=== PATIENT | male | born 1985 | race Caucasian/White ===

== ENCOUNTER 2020-05-13 13:23 | Observation (INO) | payer BC, OTHER ==
--- NOTE | 2020-05-13 14:09 | RAD REPORT ---
EXAM DESCRIPTION: RAD - Chest Single View - 05/13/2020 2:03 pm CLINICAL HISTORY: CHEST PAIN Chest pain. COMPARISON: CHEST PA AND LAT 2 VIEW dated 10/28/2011; CHEST PA AND LAT 2 VIEW dated 07/26/2008 FINDINGS: Portable technique limits examination quality. The lungs are grossly clear. The heart is normal in size. No displaced fractures. IMPRESSION: No acute intrathoracic process suspected.
[2020-05-13] MEDS ORDERED: LIDOCAINE 1% 20 ML MDV ONE (14:14)
[2020-05-13] MEDS ORDERED: HEPA 1000U/500MLS 2,000 UNIT/1,000 ML BAG IV ONE (14:14)
[2020-05-13 14:51] LABS: Absolute Lymphocytes (CBC) 2.9 K/uL (0.7-4.9); Hematocrit 43.1 % (39.6-49.0); Lymphocytes % 20.7 % (15.3-44.8); RBC Red Blood Cell Count 4.63 M/uL (4.33-5.43)
[2020-05-13 14:57] LABS: Protime INR 0.94
[2020-05-13] MEDS ORDERED: ACETAMINOPHEN 500 MG TAB PO PRN (15:05)
--- NOTE | 2020-05-13 15:07 | EDPHYS ---
Physician Documentation [facility] Name: Ari Ho Age: 34 yrs Sex: Male : 1985 Arrival Date: 05/13/2020 Time: 13:25 Bed 7 Private MD: ED Physician Johnny Arreola HPI: 05/13 13:45 This 34 yrs old Male presents to ER via Wheelchair with complaints of Chest rn Pain. 13:45 The patient or guardian reports chest pain that is located primarily in the substernal rn area. The pain does not radiate. Associated signs and symptoms: Pertinent positives: abdominal pain, diaphoresis, headache, nausea, shortness of breath, Pertinent negatives: recent travel, syncope. The chest pain is described as aching, squeezing. Duration: The patient or guardian reports multiple episodes, that are intermittent. Modifying factors: The symptoms are alleviated by nothing. the symptoms are aggravated by nothing. Severity of pain: At its worst the pain was moderate in the emergency department the pain has improved. The patient has not experienced similar symptoms in the past. The patient has been recently seen by a physician:. Sent by Dr. Lomeli from clinic for chest pain/sob. Plan is to take to cath. Pt reports mother of heart attack at 29, and uncle around the same age as well. No previous cardiac eval. No fever. + cough/chest pain/sob/upper abd pain. Reports headache after nitro at clinic. Pain improved slightly with nitro. No trauma. No hx of dvt/PE. . Historical: - Allergies: 13:41 NKA; ll1 - PSHx: 13:41 Appendectomy; ll1 - Immunization history:: Flu vaccine is not up to date. - Social history:: Smoking status: Patient reports the use of cigarette tobacco products, smokes one pack cigarettes per day. - Family history:: not pertinent. - Hospitalizations: : No recent hospitalization is reported. ROS: 13:45 Constitutional: Negative for fever, chills, and weight loss, Eyes: Negative for injury, rn pain, redness, and discharge, Neck: Negative for injury, pain, and swelling, Cardiovascular: Negative for palpitations, and edema, Respiratory: Negative for wheezing, and pleuritic chest pain, Abdomen/GI: Negative for abdominal pain, nausea, vomiting, diarrhea, and constipation, Back: Negative for injury and pain, MS/Extremity: Negative for injury and deformity, Skin: Negative for injury, rash, and discoloration, Neuro: Negative for headache, weakness, numbness, tingling, and seizure. Exam: 13:45 Constitutional: This is a well developed, well nourished patient who is awake, alert, rn and in no acute distress. Head/Face: Normocephalic, atraumatic. Cardiovascular: Regular rate and rhythm. No pulse deficits. Respiratory: Speaking full sentences. No increased work of breathing, no retractions or nasal flaring. Abdomen/GI: soft, non-tender Skin: Warm, dry MS/ Extremity: Pulses equal, no cyanosis. Neurovascular intact. Full, normal range of motion. Equal circumference. Neuro: Awake and alert, GCS 15 15:27 ECG was reviewed by the Attending Physician. rn Vital Signs: 13:38 BP 155 / 84; Pulse 100; Resp 20; Temp 98.0; Pulse Ox 95% on R/A; Weight 240.86 kg; ll1 Height 6 ft. 9 in. (205.74 cm); Pain 2/10; 14:30 BP 136 / 76; Pulse 85; Resp 18; Pulse Ox 99% on R/A; vg1 14:30 BP 123 / 80; Pulse 84; Resp 19; Pulse Ox 96% ; vg1 15:02 BP 135 / 76; Pulse 86; Resp 17; Pulse Ox 100% on R/A; sv 13:38 Body Mass Index 56.90 (240.86 kg, 205.74 cm) ll1 MDM: 13:38 Patient medically screened. rn 15:04 Differential diagnosis: acute myocardial infarction, acute pericarditis, coronary rn artery disease chest wall pain, congestive heart failure costochondritis, esophagitis, gastroesophageal reflux disease (GERD), pleurisy, pneumothorax. Data reviewed: vital signs, nurses notes, lab test result(s), EKG, radiologic studies, plain films, and as a result, I will admit patient. Counseling: I had a detailed discussion with the patient and/or guardian regarding: the historical points, exam findings, and any diagnostic results supporting the discharge/admit diagnosis, lab results, radiology results, the need for further work-up and treatment in the hospital. Response to treatment: the patient's symptoms have mildly improved after treatment, and as a result, I will admit patient. Admission orders: after a detailed discussion of the patient's condition and case, the admit orders are written by me. Special discussion:. ED course: Pt without acute findings on CXR or ECG, will admit to Dr. Arevalo for cardiology eval and likely cath/ECHO.. 05/13 13:45 Order name: Basic Metabolic Panel; Complete Time: 15:25 rn 05/13 13:45 Order name: CBC with Diff; Complete Time: 15:04 rn 05/13 13:45 Order name: LFT's; Complete Time: 15:25 rn 05/13 13:45 Order name: NT PRO-BNP; Complete Time: 15:25 rn 05/13 13:45 Order name: PT-INR; Complete Time: 15:06 rn 05/13 13:45 Order name: Troponin (emerg Dept Use Only); Complete Time: 15:25 05/13 13:45 Order name: XRAY Chest (1 view); Complete Time: 14:15 05/13 15:07 Order name: COVID-19 05/13 15:24 Order name: Basic Metabolic Panel [facility] 05/13 15:24 Order name: Basic Metabolic Panel [facility] 05/13 15:24 Order name: CBC with Automated Diff [facility] 05/13 15:24 Order name: CBC with Automated Diff [facility] 05/13 15:25 Order name: Lipid Profile [facility] 05/13 15:25 Order name: Lipid Profile [facility] 05/13 13:45 Order name: EKG; Complete Time: 13:46 05/13 13:45 Order name: Cardiac monitoring; Complete Time: 14:57 05/13 13:45 Order name: EKG - Nurse/Tech; Complete Time: 14:57 rn 05/13 13:45 Order name: IV Saline Lock; Complete Time: 14:57 rn 05/13 13:45 Order name: Labs collected and sent; Complete Time: 14:57 rn 05/13 13:45 Order name: O2 Per Protocol 05/13 13:45 Order name: O2 Sat Monitoring 05/13 15:24 Order name: CONS Physician Consult [facility] 05/13 15:24 Order name: Heart Healthy [facility] 05/13 15:24 Order name: Echo with Doppler [facility] 05/13 15:24 Order name: EKG Electrocardiogram [facility] 05/13 15:24 Order name: EKG Electrocardiogram [facility] EC:27 Rate is 91 beats/min. Rhythm is regular. QRS [place] is Normal. [place] interval is normal. QRS rn interval is normal. QT interval is normal. No Q waves. T waves are Normal. No ST changes noted. Clinical impression: Normal sinus rhythm. Interpreted by me. Reviewed by me. Administered Medications: 15:12 Drug: morphine 4 mg Route: IVP; Site: right hand; hb 15:59 Follow up: Response: No adverse reaction; RASS: Alert and Calm (0) sv 15:12 Drug: Zofran (Ondansetron) 4 mg Route: IVP; Site: right hand; hb 15:59 Follow up: Response: No adverse reaction sv Disposition: 05/13/20 15:06 Hospitalization ordered by Yared Arevalo for Observation. Preliminary diagnosis are Chest pain, unspecified, Dyspnea, unspecified. - Bed requested for Telemetry/MedSurg (observation). - Status is Observation. vg1 - Condition is Stable. - Problem is new. - Symptoms have improved. Signatures: Dispatcher [employer] EDMI Savannah Hedrick RN RN dw Johnny Arreola MD MD rn Baxter, Heather, RN RN hb Garcia, Victoria, RN RN vg1 Rox Ly RN RN Batsheva Souza RN sv Corrections: (The following items were deleted from the chart) 15:46 15:06 Hospitalization Ordered by Yared Arevalo MD for Observation. Preliminary dw diagnosis is Chest pain, unspecified; Dyspnea, unspecified. Bed requested for Telemetry/MedSurg (observation). Status is Observation. Condition is Stable. Problem is new. Symptoms have improved. rn 16:23 15:46 05/13/2020 15:06 Hospitalization Ordered by Yared Arevalo MD for Observation. vg1 Preliminary diagnosis is Chest pain, unspecified; Dyspnea, unspecified. Bed requested for Telemetry/MedSurg (observation). Status is Observation. Condition is Stable. Problem is new. Symptoms have improved. dw
--- NOTE | 2020-05-13 15:07 | ER ---
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 Possible CHF, was ll1 seen at [place] last week. 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 Coronavirus screen: Client denies travel out of the [place] in the last 14 days. difficulty breathing, Client presents with at least one sign or symptom that may indicate coronavirus-19. Standard/surgical mask placed on the client. Ebola Screen: Patient denies travel to an Ebola-affected area in the 21 days before illness onset. Initial Sepsis Screen: Does the patient meet any 2 criteria? HR > 90 bpm. No. Patient's initial sepsis screen is negative. Does the patient have a suspected source of infection? Yes: Other: CP/SOB. Risk Assessment: Do you want to hurt yourself or someone else? Patient reports no desire to harm self or others. Onset of symptoms was May 08, 2020. 13:38 Method Of Arrival: Wheelchair ll1 13:38 Acuity: RUFINA 2 ll1 Historical: - Allergies: 13:41 NKA; ll1 - PSHx: 13:41 Appendectomy; ll1 - Immunization history:: Flu vaccine is not up to date. - Social history:: Smoking status: Patient reports the use of cigarette tobacco products, smokes one pack cigarettes per day. - Family history:: not pertinent. - Hospitalizations: : No recent hospitalization is reported. Screenin:30 Abuse screen: Denies threats or abuse. Denies injuries from another. Nutritional vg1 screening: No deficits noted. Tuberculosis screening: No symptoms or risk factors identified. Fall Risk None identified. Assessment: 13:45 General: Appears in no apparent distress. uncomfortable, Behavior is cooperative, vg1 anxious. Pain: Complains of pain in chest Pain does not radiate. Pain currently is 7 out of 10 on a pain scale. Neuro: Level of Consciousness is awake, alert, obeys commands, Oriented to person, place, time, situation. Cardiovascular: Capillary refill < 3 seconds Patient's skin is warm and dry. Respiratory: Respiratory effort is even, unlabored, Respiratory pattern is regular, symmetrical. GI: No signs and/or symptoms were reported involving the gastrointestinal system. : No signs and/or symptoms were reported regarding the genitourinary system. EENT: No signs and/or symptoms were reported regarding the EENT system. Derm: Skin is pink, warm \T\ dry. Musculoskeletal: No signs and/or symptoms reported regarding the musculoskeletal system. 14:45 Reassessment: Patient appears in no apparent distress at this time. Patient and/or vg1 family updated on plan of care and expected duration. Pain level reassessed. Patient is alert, oriented x 3, equal unlabored respirations, skin warm/dry/pink. 15:13 Reassessment: Pt c/o chest pain and headache 7/10. Dr. Arreola notified, morphine and hb Zofran administered as ordered. Vital Signs: 13:38 BP 155 / 84; Pulse 100; Resp 20; Temp 98.0; Pulse Ox 95% on R/A; Weight 240.86 kg; ll1 Height 6 ft. 9 in. (205.74 cm); Pain 2/10; 14:30 BP 136 / 76; Pulse 85; Resp 18; Pulse Ox 99% on R/A; vg1 14:30 BP 123 / 80; Pulse 84; Resp 19; Pulse Ox 96% ; vg1 15:02 BP 135 / 76; Pulse 86; Resp 17; Pulse Ox 100% on R/A; sv 13:38 Body Mass Index 56.90 (240.86 kg, 205.74 cm) ll1 ED Course: 13:25 Patient arrived in ED. mr 13:38 García Hernandez, LISA is PHCP. pm1 13:38 Johnny Arreola MD is Attending Physician. pm1 13:41 Triage completed. ll1 13:42 Arm band placed on Patient placed in an exam room, on a stretcher. ll1 14:02 XRAY Chest (1 view) In Process Unspecified. EDMS 14:37 Batsheva Maria, SAMPSON is Primary Nurse. sv 14:56 Basic Metabolic Panel Sent. mh5 14:57 LFT's Sent. mh5 14:57 NT PRO-BNP Sent. mh5 14:57 PT-INR Sent. 5 14:57 Troponin (emerg Dept Use Only) Sent. [facility] 14:58 Patient has correct armband on for positive identification. Placed in gown. Bed in low mh5 position. Call light in reach. Side rails up X2. Adult w/ patient. Warm blanket given. Pillow given. laboratory monitor on. Pulse ox on. NIBP on. 14:59 Initial lab(s) drawn, by me, sent to lab. EKG done, by ED staff, reviewed by Johnny Arreola MD. Inserted saline lock: 20 gauge in right hand, using aseptic technique. Blood collected. 15:05 Yared Arevalo MD is Hospitalizing Provider. rn 15:14 Primary Nurse role handed off by Batsheva Maria RN 15:14 Galina Vick RN is Primary Nurse. sv 15:59 No provider procedures requiring assistance completed. Patient admitted, IV remains in sv place. intact. Patient maintains SpO2 saturation greater than 95% on room air. Administered Medications: 15:12 Drug: morphine 4 mg Route: IVP; Site: right hand; hb 15:59 Follow up: Response: No adverse reaction; RASS: Alert and Calm (0) sv 15:12 Drug: Zofran (Ondansetron) 4 mg Route: IVP; Site: right hand; hb 15:59 Follow up: Response: No adverse reaction sv Outcome: 15:06 Decision to Hospitalize by Provider. rn 15:59 Admitted to Manager Visual accompanied by nurse, accompanied by tech, via stretcher, on sv monitor, with chart, Report called to Gloria BRADEN 15:59 Condition: stable 15:59 Instructed on the need for admit. 16:23 Patient left the ED. vg1 Signatures: Dispatcher [employer] EDMS Batsheva Maria RN RN sv Su, Jessie Maxwell, MD MD sampson Turner Patrick, HISTORICAL SITE GUIDE HISTORICAL SITE GUIDE pm1 Galina Vick, Heather Rees RN, Victoria, RN RN vg1 Rox Ly RN RN ll1
[2020-05-13] MEDS ORDERED: MORPHINE 4 MG/ML SYR ONE (15:20)
[2020-05-13 15:21] LABS: ALT/SGPT 37 U/L (12-78); AST/SGOT 15 U/L (15-37); Albumin 3.4 g/dL (3.4-5.0); Alkaline Phosphatase 119 U/L (45-117); BUN Blood Urea Nitrogen 15 mg/dL (7-18); Bicarbonate 28 mmol/L (21-32); Bilirubin Direct < 0.1 mg/dL (0-0.2); Bilirubin Total 0.4 mg/dL (0.2-1.0); Glucose Level 173 mg/dL (74-106); NT PRO-BNP 26 pg/mL (<125); Potassium 3.5 mmol/L (3.5-5.1); Protein, Total 7.4 g/dL (6.4-8.2); Sodium Level 141 mmol/L (136-145); Troponin (Emerg Dept Use Only) < 0.02 ng/mL (0.0-0.045)
[2020-05-13] MEDS ORDERED: ONDANSETRON 4 MG/2 ML VIAL ONE (15:21)
[2020-05-13] MEDS ORDERED: MORPHINE 2 MG/ML SYR IV PRN (15:38)
[2020-05-13] MEDS ORDERED: CLOPIDOGREL 75 MG TABLET PO ONE (15:45)
[2020-05-13] MEDS ORDERED: HEPARIN 5000 UNIT/ML 1 ML VIAL ONE (15:57)
[2020-05-13] MEDS ORDERED: VERAPAMIL HCL 10 MG/4 ML VIAL IV ONE (15:57)
[2020-05-13] MEDS ORDERED: MIDAZOLAM HCL 2 MG/2 ML INJ ONE (15:57)
[2020-05-13] MEDS ORDERED: FENTANYL CITR 100 MCG/2 ML ONE (15:57)
[2020-05-13] MEDS ORDERED: ATROPINE SULF 1 MG/10 ML SYR IV ONE (15:57)
--- NOTE | 2020-05-13 15:59 | P.HP ---
Certification for Inpatient Patient admitted to: Observation With expected LOS: <2 Midnights Patient will require the following post-hospital care: None Practitioner: I am a practitioner with admitting privileges, knowledge of patient current condition, hospital course, and medical plan of care. Services: Services provided to patient in accordance with Admission requirements found in Title 42 Section 412.3 of the Code of Federal Regulations Patient History Date of Service: 05/13/20 Reason for admission: Unstable angina History of Present Illness: Patient is a 34-year-old gentleman who came to the hospital with shortness of breath. Patient has some mild chest discomfort as well. Patient strong family history of Coronary artery disease. Patient has been noticing he has been retaining fluid and has gained weight as well. He is 535 lb. His BMI is greater than 50. At this time, he will be admitted to the hospital for further evaluation. Spoke with Cardiology and plan is dual heart catheterization. Unable to do a stress test to really evaluate his cardiac disease. It be more appropriate to get a cardiac evaluation. Patient will be admitted to the hospital for further treatment. Allergies acetaminophen [From Tylenol] Allergy (Verified 05/13/20 20:29) HOT FLUSHES Home Medications: NK [No Home Meds] 09/26/13 - Past Medical/Surgical History Diabetic: No -: Morbid obesity -: left sholder surgery - Family History Mother Medical History: Hypertension Father Medical History: Hypertension - Social History Smoking Status: Never smoker Alcohol use: No CD- Drugs: No Review of Systems 10-point ROS is otherwise unremarkable Physical Examination - Vital Signs Temperature: 98 F Blood Pressure: 150/80 Pulse: 89 Respirations: 24 Pulse Ox (%): 92 - Physical Exam General: Alert, In no apparent distress, Oriented x3 HEENT: Atraumatic, Normocephalic Neck: Supple, 2+ carotid pulse no bruit, JVD not distended, No Thyromegaly Respiratory: Clear to auscultation bilaterally, Normal air movement Cardiovascular: Regular rate/rhythm, Normal S1 S2, No murmurs Gastrointestinal: Normal bowel sounds, Soft and benign, Non-distended, No tenderness Musculoskeletal: No clubbing, No swelling Integumentary: No rashes Neurological: Normal gait, Normal speech, Normal strength at 5/5 x4 extr, Normal tone, Sensation intact, Cranial nerves 3-12 intact - Studies Laboratory Data (last 24 hrs) 05/13/20 14:38: PT 11.1, INR 0.94 05/13/20 14:38: WBC 13.8 H, Hgb 14.6, Hct 43.1, Plt Count 391 05/13/20 14:38: Sodium 141, Potassium 3.5, BUN 15, Creatinine 0.96, Glucose 173 H, Total Bilirubin 0.4, AST 15, ALT 37, Alkaline Phosphatase 119 H Assessment & Plan - Problems (Diagnosis) (1) Chest pain, rule out acute myocardial infarction Current Visit: Yes Status: Acute (2) Morbid obesity Current Visit: Yes Status: Acute (3) Family history of heart disease Current Visit: Yes Status: Acute (4) Shortness of breath Current Visit: Yes Status: Acute (5) Orthopnea Current Visit: Yes Status: Acute (6) Hypertension Current Visit: No Status: Acute - Plan 1. Echocardiogram; may not be able to get a great evaluation because of his size 2. We will start patient on an ROLY inhibitor or an ARB 3. We will start patient on a Beta sid 4. Cardiology consultation 5. Aggressive diuresis 6. Strict I's and O's 7. Repeat CXR 8. Daily weights 9. Unable to do a stress test because of his weight 10. Education regarding diet and treatment of congestive heart failure Discharge Plan: Home Plan to discharge in: 24 Hours - Advance Directives Does patient have a Living Will: No Does patient have a Durable POA for Healthcare: No - Code Status/Comfort Care Code Status Assessed: Yes Code Status: Full Code Critical Care: No Time Spent Managing PTS Care (In Minutes): 35
[2020-05-13] MEDS: ENOXAPARIN 40 MG/0.4 ML SQ SCH (16:00)
[2020-05-13] MEDS ORDERED: NA CHLORIDE 0.9% 1,000 ML ONE (16:14)
[2020-05-13] MEDS ORDERED: ACETAMINOPHEN 500 MG TAB ONE (17:09)
[2020-05-13] MEDS ORDERED: MEPERIDINE HCL 25 MG/ML SYR ONE (18:15)
[2020-05-13] MEDS ORDERED: TRAMADOL HCL 50 MG TAB PO ONE (19:49)
[2020-05-13 19:50] VITALS: BMI 57.3
[2020-05-13] MEDS: METOPROLOL TAR 25 MG TAB PO SCH (20:06)
[2020-05-13] MEDS ORDERED: MEPERIDINE HCL 25 MG/ML SYR IV ONE (21:03)
[2020-05-13] MEDS ORDERED: MELATONIN 5 MG TABLET PO PRN (21:04)
[2020-05-13] MEDS ORDERED: NITROGLYCERIN 0.4 MG/TAB SL PRN (22:02)
[2020-05-14] MEDS: FUROSEMIDE 40 MG/4 ML VIAL IV SCH ×2 (01:32→09:03)
--- NOTE | 2020-05-14 02:30 | CON ---
Date of Consultation: 05/13/2020 Chief Complaint: Shortness of breath. History Of Present Illness: A 34-year-old male with no known medical history except morbid obesity, comes into the office today with chest pain on and off for the past 5 days, exacerbated with exertion and gets better with sublingual nitroglycerin. He had an active chest pain in my office. EKG was n ormal. However, after 2 sublingual nitroglycerin, the patient's pain has improved significantly and he has also orthopnea, lower extremity edema, and shortness of breath with minimal exertion. Past Medical History: None. Medications: None. Allergies: NO KNOWN DRUG ALLERGIES. Social History: Does not smoke or drink. Does not use any drugs. Family History: No premature coronary artery disease or cancer. Review of Systems: All systems reviewed and they were negative except what was mentioned in the HPI. Physical Examination: Vital Signs: Temperature is 96.4, pulse is 85, breathing 18 to 22, blood pressure is 148/97, saturat ing 92% on room air. General: Pleasant, morbidly obese young male, in no distress. Head and Neck: Pupils are equal, reactive to light. Intact eye movements. No cervical lymphadenopa thy. Neck is supple. Thyroid is not enlarged. Lungs: Clear to auscultation bilaterally. No rhonchi, rales, or crackles. No accessory muscle use. Heart: Regular rate and rhythm. No extra sounds. Abdomen: Soft, nontender. Bowel sounds positive. No organomegaly. No masses or hernia. No rigidi ty or rebound. Extremities: 3+ pitting edema bilaterally. No clubbing or cyanosis. Intact pulses. Skin: No rash. Neurologic: Alert, awake, oriented x3. No acute focal deficits appreciated. Investigations: Labs were reviewed. Assessment And Plan: 1.Unstable anginal symptoms. Pain is with exertion, improves with sublingual nitroglycerin. I did an urgent coronary angiogram on him today and coronary arteries are normal, however, LVEDP is elevate d. The patient is likely with diastolic heart failure. See below. 2.Acute congestive heart failure symptoms, likely diastolic dysfunction. LVEDP is elevated. Recomm end Lasix 40 mg IV q.8 hours and reassess clinically. Obtain echocardiogram. Post discharge, the pa tient should go home on diuretics and follow up with me in the office in 1 week. 3.Morbid obesity. The patient should consider bariatric surgery for weight loss. /YESY Voice ID: [id number] Report ID: [id number]
--- NOTE | 2020-05-14 02:30 | OP ---
Date of Procedure: 05/13/2020 Surgeon: UMESH HOLLIDAY Procedures Performed: 1.Selective coronary angiogram. 2.Left heart catheterization. Indications: 1.Unstable angina. 2.Congestive heart failure. Access: Right radial artery 6-Croatian closed with TR band. Complications: None. Bleeding: Less than 5 mL. Total Sedation Time: 20 minute. Description Of Procedure: After risks, benefits, and alternatives were explained, the patient agreed to the procedure and signed informed consent. Then, we brought the patient into the cardiac cathete rization laboratory, prepped and draped in usual sterile fashion, and then we accessed right radial a rtery using pediatric micropuncture kit. We used fentanyl and Versed in incremental doses to achieve adequate moderate sedation. Then through the 6-Croatian Cordis sheath through the radial artery, we p assed a 5-Croatian [place] catheter into the aortic root and engaged left main and right coronary artery, took standard views, and then we took the wire across aortic valve into the LV, recorded LVEDP and u nadya pullback, there was no difference in pressure. Findings: 1.Left main is normal and very large. 2.LAD, large and normal. 3.Left circumflex, large and normal. 4.RCA, large, normal, and dominant. 5.LVEDP was 25 mmHg. Impression: 1.Normal coronary arteries. 2.Likely acute diastolic congestive heart failure with elevated LVEDP. Recommendation: IV diuretics and obtain echocardiogram. /YESY Voice ID: [id number] Report ID: [id number]
[2020-05-14] MEDS ORDERED: MEPERIDINE HCL 25 MG/ML SYR IV ONE (02:53)
[2020-05-14] MEDS ORDERED: HYDROCODONE/APAP 5/325 MG TAB PO ONE ×2 (05:40→11:59)
[2020-05-14 05:45] LABS: Absolute Lymphocytes (CBC) 2.6 K/uL (0.7-4.9); Basophils % 1.2 % (0-1.3); Hematocrit 42.7 % (39.6-49.0); Lymphocytes % 25.7 % (15.3-44.8); MPV 7.7 fL (7.6-11.3); RBC Red Blood Cell Count 4.58 M/uL (4.33-5.43)
[2020-05-14 05:53] LABS: BUN Blood Urea Nitrogen 14 mg/dL (7-18); Bicarbonate 30 mmol/L (21-32); Glucose Level 113 mg/dL (74-106); HDL Cholesterol 39 mg/dL (40-60); LDL Cholesterol, Calculated 128 (<130); Potassium 3.7 mmol/L (3.5-5.1); Sodium Level 142 mmol/L (136-145)
[2020-05-14 08:47] VITALS: O2SAT 98
[2020-05-14] MEDS ORDERED: CLOPIDOGREL 75 MG TABLET PO SCH (09:00)
[2020-05-14] MEDS ORDERED: ASPIRIN 325 MG TAB PO SCH (09:00)
[2020-05-14] MEDS ORDERED: ASPIRIN EC 81 MG TAB PO SCH (09:00)
[2020-05-14] MEDS: ENOXAPARIN 40 MG/0.4 ML SQ SCH (09:03)
[2020-05-14] MEDS: METOPROLOL TAR 25 MG TAB PO SCH (09:03)
--- NOTE | 2020-05-14 12:26 | PN ---
Date of Progress Note: 05/14/2020 Subjective: Mr. Vasquez had a catheterization yesterday because of chest pain, was found to have norm al heart catheterization, but elevated left ventricular end-diastolic pressure. Overnight, the nurse s reported no telemetry issues. He was in sinus rhythm. They reported no access site as far as the catheterization site is concerned. I think he has acute diastolic congestive heart failure. He need s to be on beta-blockers and Lasix. Watch salt intake, I's and O's. Consider weight loss surgery. He can go home today. Case was discussed with Dr. Arevalo. He will follow up with Dr. Lomeli in the ne xt 2 weeks. JANNA/YESY Voice ID: [id number] Report ID: [id number]
[2020-05-14 12:28] VITALS: BP 148/82; TEMP 96.8
--- NOTE | 2020-05-14 12:34 | EKG ---
Test Date: 2020-05-13 Test Time: 14:48:44 Advertising Designer: MELVA MEASUREMENT RESULTS: Intervals: Rate: 91 GA: 184 QRSD: 108 QT: 376 QTc: 462 [place]: P: 31 GA: 184 QRS: 7 T: 56 INTERPRETIVE STATEMENTS: Normal sinus rhythm Possible Left atrial enlargement Borderline ECG Compared to ECG 12/28/2016 16:40:22 Sinus tachycardia no longer present Electronically Signed On 05-14-20 12:33:09 DIRECTOR MEDICAID by Js Man
[2020-05-14] MEDS ORDERED: FUROSEMIDE 40 MG/4 ML VIAL IV SCH (18:00)
--- NOTE | 2020-05-15 07:18 | EKG ---
Test Date: 2020-05-14 Test Time: 14:27:17 Fire Extinguisher Repairer: DOMINIK MEASUREMENT RESULTS: Intervals: Rate: 69 MT: 186 QRSD: 114 QT: 408 QTc: 437 [place]: P: 34 MT: 186 QRS: 16 T: 56 INTERPRETIVE STATEMENTS: Normal sinus rhythm Normal ECG Compared to ECG 05/13/2020 14:48:44 No significant changes Electronically Signed On 05-15-20 07:17:24 EMPLOYEE COMMUNICATIONS SPECIALIST by Js Man
--- NOTE | 2020-05-15 07:20 | EKG ---
Test Date: 2020-05-13 Test Time: 19:17:02 Irrigation Engineer: DOMINIK MEASUREMENT RESULTS: Intervals: Rate: 78 AK: 180 QRSD: 118 QT: 392 QTc: 446 [place]: P: 29 AK: 180 QRS: -14 T: 53 INTERPRETIVE STATEMENTS: Normal sinus rhythm Nonspecific intraventricular conduction delay Borderline ECG Compared to ECG 05/13/2020 14:48:44 Intraventricular conduction delay now present Electronically Signed On 05-15-20 07:17:51 FLIGHT OPERATION COORDINATOR by Js Man
--- NOTE | 2020-05-15 07:26 | ECHO ---
HEIGHT: 6 ft 9 in WEIGHT: 535 lb 0 oz DATE OF STUDY: 05/14/[address]: Yared Arevalo MD 2-DIMENSIONAL: YES M.MODE: YES DOPPLER: YES COLOR FLOW: YES TDS: PORTABLE: DEFINITY: BUBBLE STUDY: DIAGNOSIS: CHEST PAIN, RULE OUT ACUTE CORNARY SYNDROME CARDIAC HISTORY: CATHERIZATION: YES SURGERY: NO PROSTHETIC VALVE: NO PACEMAKER: NO MEASUREMENTS (cm) DIASTOLIC (NORMALS) SYSTOLIC (NORMALS) IVSd 1.4 (0.6-1.2) LA Diam 4.0 (1.9-4.0) LVEF 66% LVIDd 4.8 (3.5-5.7) LVIDs 3.1 (2.0-3.5) %FS 36% LVPWd 1.4 (0.6-1.2) Ao Diam 2.9 (2.0-3.7) 2 DIMENSIONAL ASSESSMENT: RIGHT ATRIUM: NORMAL LEFT ATRIUM: NORMAL RIGHT VENTRICLE: NORMAL LEFT VENTRICLE: LEFT VENTRICULAR HYPERTROPHY TRICUSPID VALVE: NORMAL MITRAL VALVE: NORMAL PULMONIC VALVE: NORMAL AORTIC VALVE: NORMAL PERICARDIAL EFFUSION: NONE AORTIC ROOT: NORMAL LEFT VENTRICULAR WALL MOTION: NORMAL EJECTION FRACTION. DECREASED LEFT VENTRICULAR COMPLIANCE. DOPPLER/COLOR FLOW: DECREASED LEFT VENTRICULAR COMPLIANCE. COMMENTS: DIASTOLIC DYSFUNCTION. LEFT VENTRICULAR HYPERTROPHY CONCENTRIC. NORMAL EJECTION FRACTION. TECHNICALLY DIFFICULT STUDY. NO EFFUSION. TECHNOLOGIST: MITZY DALAL
== END 2020-05-14 15:15 | disposition home or self-care (01) ==
LOC: ER 13:23 → ERHOLD 15:05 → 2ND 17:39
PROVIDERS: ADMIT Hospitalist; ATTEND Hospitalist
DX: R07.9 Chest pain, unspecified (principal); I50.31 Acute diastolic (congestive) heart failure; Z20.828 Contact with and (suspected) exposure to other viral communicable diseases; E66.01 Morbid (severe) obesity due to excess calories; Z82.49 Family history of ischemic heart disease and other diseases of the circulatory system; F17.210 Nicotine dependence, cigarettes, uncomplicated; Z68.43 Body mass index [BMI] 50.0-59.9, adult
CPT/HCPCS: 93005 ×3; 93306; 85025 ×2; 80048 ×2; 36415; 85610; 80061; 80076; 84484; 83880; 71045; 93458; 96375; 96374; 99285; U0002; C1893; J1940 ×2; J1644 ×2; J1650; J2250; J3010; J2175 ×3; J7030; J2405

== ENCOUNTER 2021-04-30 19:37 | Emergency (ER) | payer BC, OTHER ==
[2021-04-30] MEDS ORDERED: MEPERIDINE HCL 50 MG/ML ONE ×2 (20:15→22:08)
[2021-04-30] MEDS ORDERED: NA CHLORIDE 0.9% 2,000 ML ONE (20:15)
[2021-04-30] MEDS ORDERED: PROMETHAZINE INJ 25 MG/ML AMP ONE (20:15)
[2021-04-30 20:40] LABS: Absolute Lymphocytes (CBC) 1.8 K/uL (0.7-4.9); Basophils % 0.3 % (0-1.3); Hematocrit 43.1 % (39.6-49.0); Lymphocytes % 20.6 % (15.3-44.8); MPV 8.9 fL (7.6-11.3); RBC Red Blood Cell Count 4.65 M/uL (4.33-5.43)
[2021-04-30 21:02] LABS: Albumin 3.5 g/dL (3.4-5.0); Bilirubin Direct 0.1 mg/dL (0-0.2); Bilirubin Total 0.6 mg/dL (0.2-1.0); Protein, Total 7.4 g/dL (6.4-8.2)
[2021-04-30 21:17] LABS: SARS-COV-2 RT PCR NEGATIVE (NEGATIVE)
--- NOTE | 2021-04-30 21:25 | RAD REPORT ---
EXAM DESCRIPTION: CT - Chest Angio - 04/30/2021 9:12 pm CLINICAL HISTORY: FEVER COMPARISON: Abdomen Pelvis W Contrast dated 04/30/2021 FINDINGS: Chest Wall: No suspicious thyroid nodules or pathologic lymphadenopathy. Lungs: No acute abnormality. Pleura: No significant effusions or pneumothorax. Mediastinum/moi: No pathologic lymphadenopathy. Pulmonary arteries/Aorta: No filling defect identified. No aortic aneurysm. Heart: No significant pericardial effusion. Normal heart size. Upper abdomen: No acute abnormality. Partial gastrectomy. Bones: No acute abnormality. All CT scans are performed using dose optimization technique as appropriate and may include automated exposure control or mA/KV adjustment according to patient size. IMPRESSION: No aortic aneurysm or aortic dissection identified. No central pulmonary embolus. The tyrone ngs are clear.
--- NOTE | 2021-04-30 21:32 | RAD REPORT ---
EXAM DESCRIPTION: CTAbdomen Pelvis W Contrast - 04/30/2021 9:12 pm CLINICAL HISTORY: S/P bariatric surgery;Abd pain COMPARISON: No comparisons TECHNIQUE: CT of the abdomen and pelvis was performed. All CT scans are performed using dose optimization technique as appropriate and may include automated exposure control or mA/KV adjustment according to patient size. FINDINGS: Lower chest: No acute abnormality. Liver: Hepatic steatosis. Biliary: No biliary ductal dilatation. Stomach: Kamryn-en-Y gastric bypass. Duodenum: No significant focal abnormality. Pancreas: No significant abnormality. Spleen: No significant abnormality. Adrenal: No suspicious lesions. Kidney/ureter: No hydronephrosis. No renal calculi. Retroperitoneum: No retroperitoneal adenopathy. Vascular: No aneurysm. Bowel: Diffuse colonic wall thickening. Appendectomy.. No bowel obstruction. Peritoneum: No ascites or free air. Small fat containing right inguinal hernia. Bladder: Grossly unremarkable. Reproductive: No adnexal masses. Bones: No acute fracture. Other: n/a IMPRESSION: Pancolitis with differential to include infectious and inflammatory etiologies primarily .
[2021-04-30] MEDS ORDERED: KCL 20 MEQ/100 mL IVPB 20 MEQ/100 ML BAG IV ONE (22:30)
[2021-04-30] MEDS ORDERED: METRONIDAZOLE 500mg IVPB 500 MG/100 ML BAG IV ONE (22:52)
[2021-04-30] MEDS ORDERED: CIPROFLOXACIN 400mg IV 400 MG/200 ML BAG IV ONE (22:52)
[2021-05-01] MEDS ORDERED: KETOROLAC 30 MG/ML INJ ONE (00:46)
[2021-05-01] MEDS ORDERED: KCL 20 MEQ/100 mL IVPB 20 MEQ/100 ML BAG IV ONE (01:03)
[2021-05-01] MEDS ORDERED: POTASSIUM 25 MEQ EFFERV TAB ONE (01:07)
[2021-05-01] MEDS ORDERED: MEPERIDINE HCL 50 MG/ML ONE (02:23)
--- NOTE | 2021-05-01 03:43 | ER ---
Nurse's Notes [facility] Name: Ari Ho Age: 35 yrs Sex: Male : 1985 Arrival Date: 04/30/2021 Time: 19:41 Bed 2 Private MD: Diagnosis: Abdominal pain. Pancolitis. Hypokalemia. S/P bariatric surgery Presentation: 04/30 19:47 Chief complaint: Patient states: pt states he had weight loss surgery last month and mr2 over the past 3 days has developed nausea epigastric pain 9/10 and low grade fever. unable to hold down food or liquid. Coronavirus screen: Vaccine status: Patient reports being unvaccinated. Ebola Screen: Patient negative for fever greater than or equal to 101.5 degrees Fahrenheit, and additional compatible Ebola Virus Disease symptoms Patient denies exposure to infectious person. Patient denies travel to an Ebola-affected area in the 21 days before illness onset. Initial Sepsis Screen: Does the patient meet any 2 criteria? HR > 90 bpm. Does the patient have a suspected source of infection? Yes: Acute abdominal pain. Risk Assessment: Do you want to hurt yourself or someone else? Patient reports no desire to harm self or others. 19:47 Method Of Arrival: Ambulatory mr2 19:47 Acuity: RUFINA 2 mr2 19:59 Onset of symptoms was April 28, 2021. mr2 Historical: - Allergies: 19:57 Morphine; mr2 - Home Meds: 20:04 lisinopril 10 mg Oral tab 1 tab once daily [Active]; metoprolol tartrate 25 mg Oral tab mr2 1 tab once daily [Active]; furosemide 20 mg Oral tab 1 tab once daily [Active]; - Immunization history:: Adult Immunizations up to date, Client reports having NOT received the Covid vaccine. Flu vaccine is not up to date. - Social history:: Smoking status: Patient denies any tobacco usage or history of. Screenin:20 Abuse screen: Denies threats or abuse. Nutritional screening: No deficits noted. lc1 Tuberculosis screening: No symptoms or risk factors identified. Fall Risk None identified. Assessment: 20:06 General: Appears distressed, uncomfortable, obese, Behavior is cooperative, anxious, lc1 restless, Reports feeling ill for 2-3 days. Pain: Complains of pain in abdomen Pain currently is 10 out of 10 on a pain scale. Quality of pain is described as sharp, Pain began 2-3 days ago. Is continuous. Neuro: No deficits noted. Cardiovascular: No deficits noted. Denies chest pain. Respiratory: Airway is patent Respiratory effort is even, unlabored, Respiratory pattern is regular. GI: Bowel sounds Abdomen is tender to palpation in epigastric area Reports nausea, vomiting, since 2 days ago had gastric bypass 1 month ago. was able to tolerate fluids, now for last 3 days has not been able to keep anything down, has been running fevers. 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 Derm: laproscopic scars noted to abdomen from gastric bypass. 21:00 Reassessment: No changes from previously documented assessment. Patient and/or family lc1 updated on plan of care and expected duration. Pain level reassessed. Patient is alert, oriented x 3, equal unlabored respirations, skin warm/dry/pink. Patient states symptoms have not improved. 22:00 Reassessment: No changes from previously documented assessment. Patient and/or family lc1 updated on plan of care and expected duration. Pain level reassessed. Patient is alert, oriented x 3, equal unlabored respirations, skin warm/dry/pink. Patient states symptoms have not improved. Dr Reynoso Notified, med ordered . 22:50 Reassessment: Patient and/or family updated on plan of care and expected duration. Pain lc1 level reassessed. PT states he had diarrhea 5x today. Last time was at lunch. Last vomiting was at breakfast. Unable to tolerated any po Fluids all day. No diarrhea or vomiting while here in ER . 23:45 Reassessment: Patient and/or family updated on plan of care and expected duration. Pain lc1 level reassessed. Patient is alert, oriented x 3, equal unlabored respirations, skin warm/dry/pink. pt sleeping, no distress noted, at bedside . 05/01 00:38 Reassessment: Patient and/or family updated on plan of care and expected duration. Pain lc1 level reassessed. Patient is alert, oriented x 3, equal unlabored respirations, skin warm/dry/pink. Patient states that his pain is increased, requesting additional pain medication, Dr Reynoso informed. 01:08 Reassessment: No changes from previously documented assessment. Patient and/or family lc1 updated on plan of care and expected duration. Pain level reassessed. Patient is alert, oriented x 3, equal unlabored respirations, skin warm/dry/pink. attempted to give klyte po, pt unable to tolerate. refused saying it will make him throw up. Attempted to give sip of water. pt able to swallow it but stated it made his stomach hurt. . 02:21 Reassessment: Patient and/or family updated on plan of care and expected duration. Pain lc1 level reassessed. pt states his abdominal pain is bad again. attempted to reposition, unable to tolerated movement, attempted to give sip of water, unable to tolerate po liquids. states he feels like he will throw up. . 03:30 Reassessment: No changes from previously documented assessment. Patient and/or family lc1 updated on plan of care and expected duration. Pain level reassessed. Patient is alert, oriented x 3, equal unlabored respirations, skin warm/dry/pink. Vital Signs: 04/30 19:47 BP 126 / 74; Pulse 100; Resp 19; Temp 100.5; Pulse Ox 98% on R/A; Weight 222.26 kg; mr2 Height 6 ft. 9 in. (205.74 cm); Pain 9/10; 20:20 BP 129 / 65; Pulse 89; Resp 20; Temp 101.4(O); Pulse Ox 97% on R/A; Weight 222.26 kg; lc1 Height 6 ft. 9 in. (205.74 cm); Pain 10/10; 21:47 BP 117 / 69; Pulse 84; Resp 18; Pulse Ox 92% on R/A; 1 22:13 Temp 99.1(O); 1 22:30 BP 122 / 53; Pulse 86; Resp 16; Pulse Ox 91% on R/A; 1 23:15 BP 112 / 60; Pulse 84; Resp 16; Pulse Ox 92% on R/A; [facility] 05/01 00:00 BP 100 / 65; Pulse 80; Resp 16; Pulse Ox 97% on R/A; [facility] 00:37 Temp 98.6(O); [facility] 01:08 BP 119 / 73; Pulse 67; Resp 16; Pulse Ox 93% on R/A; [facility] 02:00 BP 92 / 62; Pulse 64; Resp 18; Pulse Ox 96% on R/A; 1 02:45 BP 112 / 62; Pulse 65; Pulse Ox 96% on R/A; 1 03:06 Temp 97.7(O); 1 03:45 BP 117 / 61; Pulse 58; Resp 16; Pulse Ox 97% on R/A; 1 04:00 BP 111 / 64; Pulse 58; Resp 16; Pulse Ox 95% on R/A; 1 04/30 20:20 Body Mass Index 52.51 (222.26 kg, 205.74 cm) [facility] ED Course: 04/30 19:41 Patient arrived in ED. bp1 19:52 Triage completed. mr2 19:57 Shiv Reynoso MD is Attending Physician. pkl 20:00 Bridgett Varma is Primary Nurse. lc1 20:20 Patient has correct armband on for positive identification. Allergy band placed. Bed in lc1 low position. Side rails up X2. Pulse ox on. NIBP on. 20:20 No provider procedures requiring assistance completed. lc1 20:30 Inserted saline lock: 20 gauge in left hand, using aseptic technique. Blood collected. ds4 20:43 Inserted saline lock: 18 gauge in left hand, using aseptic technique. df1 20:43 Inserted saline lock: 20 gauge in left antecubital area, using aseptic technique. df1 20:44 Procalcitonin Sent. df1 20:44 Lactate Sent. df1 20:44 Blood Culture Adult (2) Sent. df1 20:44 COVID-19/FLU A+B (Document "Date of Onset" if Symptomatic) Sent. df1 20:44 Procalcitonin Sent. df1 20:44 Lactate Sent. df1 20:44 Blood Culture Sent. df1 21:12 CT Abd/Pelvis - IV Contrast Only In Process Unspecified. EDMS 21:12 CT Chest Angio In Process Unspecified. EDMS 22:30 Door closed. Noise minimized. Lights dimmed. at bedside . [facility] 05/01 00:00 Patient notified of wait time. lc1 00:43 Potassium Sent. lc1 03:07 Potassium Sent. lc1 03:45 Resting quietly. 1 04:00 IV discontinued, intact, bleeding controlled, Pressure dressing applied. [facility] Administered Medications: 04/30 20:05 CANCELLED (Inappropriate at this time): Lisinopril 10 mg PO once mr2 20:05 CANCELLED (Inappropriate at this time): Metoprolol 25 mg PO once mr2 20:05 CANCELLED (Inappropriate at this time): Furosemide 20 mg PO once mr2 20:20 Drug: NS 0.9% 1000 ml Route: IV; Rate: 1000 ml; Site: left hand; lc1 22:36 Follow up: IV Status: Completed infusion; IV Intake: 1000ml 1 20:20 Drug: Demerol (meperidine) 50 mg Route: IVP; Site: left hand; lc1 22:36 Follow up: Response: No adverse reaction 1 20:20 Drug: Phenergan (promethazine) 25 mg Route: IVP; Site: left hand; lc1 22:36 Follow up: Response: No adverse reaction 1 22:15 Drug: Demerol (meperidine) 50 mg Route: IVP; Site: left hand; lc1 22:37 Follow up: Response: Pain is decreased [facility] 05/01 00:13 Follow up: Response: No adverse reaction; Pain is decreased [facility] 04/30 22:36 Drug: Potassium Chloride 20 mEq Route: IV; Rate: calculated rate; Site: left hand; 1 22:37 Drug: NS 0.9% 1000 ml Route: IV; Rate: 125 ml/hr; Site: left hand; 1 05/01 04:20 Follow up: IV Status: Completed infusion 1 04/30 23:04 Drug: Flagyl (metroNIDAZOLE) 500 mg Volume: 100 ml; Route: IVPB; Rate: 200 ml/hr; lc1 Infused Over: 30 mins; Site: left hand; 05/01 00:13 Follow up: Response: No adverse reaction; IV Status: Completed infusion 1 00:13 Drug: Cipro (ciprofloxacin) 400 mg Volume: 200 ml; Route: IVPB; Infused Over: 60 mins; lc1 Site: left hand; 00:50 Drug: Ketorolac 30 mg Route: IVP; Site: left antecubital; lc1 01:15 Follow up: Response: No adverse reaction lc1 01:14 Drug: Potassium Chloride 20 mEq Route: IV; Rate: 1 calculated rate; Site: left hand; lc1 02:31 Follow up: Response: No adverse reaction lc1 02:40 Follow up: IV Status: Completed infusion lc1 01:14 Not Given (Patient Refused): Klor-Con (potassium) Effervescent Tablet 50 mEq PO once; lc1 dissolve in 4 ounces of water or juice 02:31 Drug: Demerol (meperidine) 50 mg {Note: Rass 1.} Route: IVP; Site: left hand; lc1 03:54 Follow up: Response: Pain is decreased lc1 Intake: 04/30 22:36 IV: 1000ml; Total: 1000ml. lc1 Outcome: 05/01 03:42 Discharge ordered by . deysi 04:00 Discharged to home ambulatory. 1 04:00 Condition: improved 04:00 Discharge instructions given to patient, significant other, Instructed on discharge instructions, follow up and referral plans. medication usage, Demonstrated understanding of instructions, follow-up care, medications, Prescriptions given X 4. 04:21 Patient left the ED. lc1 Signatures: Dispatcher [employer] EDMS Shiv Reynoso MD MD pkl Bridgett Varma lc1 Fabian Benitez ds4 Nayla Taveras Mike, RN RN mr2 Shira Hoyos df1 Corrections: (The following items were deleted from the chart) 04/30 19:58 19:57 Allergies: NKA; mr2 mr2 20:05 04/29 00:00 Lisinopril 10 mg PO mr2 mr2 04/30 20:05 04/29 00:00 Metoprolol 25 mg PO mr2 mr2 04/30 20:05 04/29 00:00 Furosemide 20 mg PO mr2 mr2 05/01 02:13 01:08 Reassessment: No changes from previously documented assessment. Patient and/or lc1 family updated on plan of care and expected duration. Pain level reassessed. Patient is alert, oriented x 3, equal unlabored respirations, skin warm/dry/pink. lc1
--- NOTE | 2021-05-01 03:43 | EDPHYS ---
Physician Documentation [facility] Name: Ari Ho Age: 35 yrs Sex: Male : 1985 Arrival Date: 04/30/2021 Time: 19:41 Bed 2 Private MD: ED Physician Shiv Reynoso HPI: 04/30 20:15 This 35 yrs old Male presents to ER via Ambulatory with complaints of pkl Abdominal Pain, Vomiting, Fever, Post Surgical Pain. 20:15 The patient presents with abdominal pain in the upper abdomen. Onset: The pkl symptoms/episode began/occurred 3 day(s) ago. The symptoms do not radiate. Associated signs and symptoms: Pertinent positives: nausea and vomiting, fever. Patient had bariatric surgery 04/01/21 in [place], [place] Historical: - Allergies: 19:57 Morphine; mr2 - Home Meds: 20:04 lisinopril 10 mg Oral tab 1 tab once daily [Active]; metoprolol tartrate 25 mg Oral tab mr2 1 tab once daily [Active]; furosemide 20 mg Oral tab 1 tab once daily [Active]; - Immunization history:: Adult Immunizations up to date, Client reports having NOT received the Covid vaccine. Flu vaccine is not up to date. - Social history:: Smoking status: Patient denies any tobacco usage or history of. ROS: 20:15 Eyes: Negative for injury, pain, redness, and discharge, ENT: Negative for injury, pkl pain, and discharge, Neck: Negative for injury, pain, and swelling, Cardiovascular: Negative for chest pain, palpitations, and edema, Respiratory: Negative for shortness of breath, cough, wheezing, and pleuritic chest pain. 20:15 Abdomen/GI: Positive for abdominal pain, nausea and vomiting, of the upper abdomen. 20:15 Back: Negative for acute changes. 20:15 : Negative for urinary symptoms. 20:15 MS/extremity: Negative for acute changes. 20:15 Skin: Negative for rash. 20:15 Neuro: Negative for altered mental status, loss of consciousness. Exam: 20:18 Head/Face: Normocephalic, atraumatic. Eyes: Pupils equal round and reactive to light, pkl extra-ocular motions intact. Lids and lashes normal. Conjunctiva and sclera are non-icteric and not injected. Cornea within normal limits. Periorbital areas with no swelling, redness, or edema. ENT: Nares patent. No nasal discharge, no septal abnormalities noted. Tympanic membranes are normal and external auditory canals are clear. Oropharynx with no redness, swelling, or masses, exudates, or evidence of obstruction, uvula midline. Mucous membranes moist. Neck: Trachea midline, no thyromegaly or masses palpated, and no cervical lymphadenopathy. Supple, full range of motion without nuchal rigidity, or vertebral point tenderness. No Meningismus. Chest/axilla: Normal chest wall appearance and motion. Nontender with no deformity. No lesions are appreciated. Cardiovascular: Regular rate and rhythm with a normal S1 and S2. No gallops, murmurs, or rubs. Normal PMI, no JVD. No pulse deficits. Respiratory: Lungs have equal breath sounds bilaterally, clear to auscultation and percussion. No rales, rhonchi or wheezes noted. No increased work of breathing, no retractions or nasal flaring. 20:18 Abdomen/GI: Inspection: obese Bowel sounds: normal, Palpation: soft, moderate abdominal tenderness, in the epigastric area, right upper quadrant and left upper quadrant. 20:18 Back: Exam negative for acute changes. 20:18 : Exam negative for acute changes. 20:18 Musculoskeletal/extremity: Exam is negative for acute changes. 20:18 Skin: Exam negative for rash. 20:18 Neuro: Orientation: is normal, Mentation: is normal, Cranial nerves: grossly normal, Motor: is normal. Vital Signs: 19:47 BP 126 / 74; Pulse 100; Resp 19; Temp 100.5; Pulse Ox 98% on R/A; Weight 222.26 kg; mr2 Height 6 ft. 9 in. (205.74 cm); Pain 9/10; 20:20 BP 129 / 65; Pulse 89; Resp 20; Temp 101.4(O); Pulse Ox 97% on R/A; Weight 222.26 kg; lc1 Height 6 ft. 9 in. (205.74 cm); Pain 10/10; 21:47 BP 117 / 69; Pulse 84; Resp 18; Pulse Ox 92% on R/A; lc1 22:13 Temp 99.1(O); lc1 22:30 BP 122 / 53; Pulse 86; Resp 16; Pulse Ox 91% on R/A; lc1 23:15 BP 112 / 60; Pulse 84; Resp 16; Pulse Ox 92% on R/A; 1 05/01 00:00 BP 100 / 65; Pulse 80; Resp 16; Pulse Ox 97% on R/A; 1 00:37 Temp 98.6(O); 1 01:08 BP 119 / 73; Pulse 67; Resp 16; Pulse Ox 93% on R/A; 1 02:00 BP 92 / 62; Pulse 64; Resp 18; Pulse Ox 96% on R/A; 1 02:45 BP 112 / 62; Pulse 65; Pulse Ox 96% on R/A; 1 03:06 Temp 97.7(O); 1 03:45 BP 117 / 61; Pulse 58; Resp 16; Pulse Ox 97% on R/A; 1 04:00 BP 111 / 64; Pulse 58; Resp 16; Pulse Ox 95% on R/A; 1 04/30 20:20 Body Mass Index 52.51 (222.26 kg, 205.74 cm) [facility] MDM: 04/30 19:57 Patient medically screened. pkl 23:13 Data reviewed: vital signs, nurses notes, lab test result(s), radiologic studies, CT pkl scan. ED course: Patient feeling better. No vomiting or diarrhea noted in ER. Discussed lab and CT Scans results with patient and . Call made to notify results to Dr. Hector Mejia ( Bariatric surgeon ) Dr. Mejia did not return call.. 05/01 03:36 ED course: Patient feeling better. Discussed lab and imaging studies with patient and pkl . Advised to follow up with Dr. Tavo Mejia ( Bariatric surgeon ) in 1 to 2 days. Patient and understood instruction. 04/30 20:06 Order name: Basic Metabolic Panel; Complete Time: 22:21 pkl 04/30 20:06 Order name: CBC with Diff; Complete Time: 22:21 pkl 04/30 20:06 Order name: Hepatic Function; Complete Time: 22:21 pkl 04/30 20:06 Order name: Lipase; Complete Time: 22:21 pkl 04/30 20:09 Order name: Blood Culture Adult (2) pkl 04/30 20:09 Order name: Lactate pkl 04/30 20:09 Order name: Procalcitonin pkl 04/30 20:10 Order name: Blood Culture EDMS 04/30 20:10 Order name: Lactate; Complete Time: 22:21 EDMS 04/30 20:10 Order name: Procalcitonin; Complete Time: 22:21 EDMS 04/30 20:11 Order name: COVID-19/FLU A+B (Document "Date of Onset" if Symptomatic); Complete Time: pkl 22:21 05/01 00:24 Order name: Potassium; Complete Time: 01:00 1 05/01 02:38 Order name: CREATININE WHOLE BLOOD; Complete Time: 02:57 EDMS 05/01 02:41 Order name: Potassium 1 04/30 20:12 Order name: CT Abd/Pelvis - IV Contrast Only; Complete Time: 22:21 pkl 04/30 20:14 Order name: CT Chest Angio; Complete Time: 22:21 pkl 05/01 02:41 Order name: Potassium; Complete Time: 03:32 EDMS 04/30 20:06 Order name: IV Saline Lock; Complete Time: 20:30 pkl 04/30 20:06 Order name: Labs collected and sent; Complete Time: 20:30 pkl Administered Medications: 04/30 20:05 CANCELLED (Inappropriate at this time): Lisinopril 10 mg PO once mr2 20:05 CANCELLED (Inappropriate at this time): Metoprolol 25 mg PO once mr2 20:05 CANCELLED (Inappropriate at this time): Furosemide 20 mg PO once mr2 20:20 Drug: NS 0.9% 1000 ml Route: IV; Rate: 1000 ml; Site: left hand; 1 22:36 Follow up: IV Status: Completed infusion; IV Intake: 1000ml 1 20:20 Drug: Demerol (meperidine) 50 mg Route: IVP; Site: left hand; 1 22:36 Follow up: Response: No adverse reaction [facility] 20:20 Drug: Phenergan (promethazine) 25 mg Route: IVP; Site: left hand; [facility] 22:36 Follow up: Response: No adverse reaction [facility] 22:15 Drug: Demerol (meperidine) 50 mg Route: IVP; Site: left hand; [facility] 22:37 Follow up: Response: Pain is decreased [facility] 05/01 00:13 Follow up: Response: No adverse reaction; Pain is decreased 1 04/30 22:36 Drug: Potassium Chloride 20 mEq Route: IV; Rate: calculated rate; Site: left hand; 1 22:37 Drug: NS 0.9% 1000 ml Route: IV; Rate: 125 ml/hr; Site: left hand; lc1 05/01 04:20 Follow up: IV Status: Completed infusion lc1 04/30 23:04 Drug: Flagyl (metroNIDAZOLE) 500 mg Volume: 100 ml; Route: IVPB; Rate: 200 ml/hr; lc1 Infused Over: 30 mins; Site: left hand; 05/01 00:13 Follow up: Response: No adverse reaction; IV Status: Completed infusion 1 00:13 Drug: Cipro (ciprofloxacin) 400 mg Volume: 200 ml; Route: IVPB; Infused Over: 60 mins; lc1 Site: left hand; 00:50 Drug: Ketorolac 30 mg Route: IVP; Site: left antecubital; 1 01:15 Follow up: Response: No adverse reaction 1 01:14 Drug: Potassium Chloride 20 mEq Route: IV; Rate: 1 calculated rate; Site: left hand; lc1 02:31 Follow up: Response: No adverse reaction lc1 02:40 Follow up: IV Status: Completed infusion lc1 01:14 Not Given (Patient Refused): Klor-Con (potassium) Effervescent Tablet 50 mEq PO once; lc1 dissolve in 4 ounces of water or juice 02:31 Drug: Demerol (meperidine) 50 mg {Note: Rass 1.} Route: IVP; Site: left hand; 1 03:54 Follow up: Response: Pain is decreased 1 Disposition Summary: 05/01/21 03:42 Discharge Ordered Location: Home pkl Problem: new pkl Symptoms: have improved pkl Condition: Stable pkl Diagnosis - Abdominal pain. Pancolitis. Hypokalemia. S/P bariatric surgery pkl Followup: pkl - With: Private Physician - When: 1 - 2 days - Reason: Re-evaluation by your physician Discharge Instructions: - Discharge Summary Sheet pkl Forms: - Medication Reconciliation Form pkl - Thank You Letter pkl - Antibiotic Education pkl - Prescription Opioid Use pkl - Work release form ds4 Prescriptions: - Flagyl 500 mg Oral Tablet - take 1 tablet by ORAL route every 6 hours for 7 days; 28 tablet; Refills: 0, pkl Product Selection Permitted - Ultram 50 mg Oral Tablet - take 1 tablet by ORAL route every 6 hours As needed; 15 tablet; Refills: 0, pkl Product Selection Permitted - Zofran 4 mg Oral Tablet - take 1 tablet by ORAL route every 12 hours As needed; 15 tablet; Refills: 0, pkl Product Selection Permitted - Cipro 500 mg Oral Tablet - take 1 tablet by ORAL route every 12 hours for 7 days; 14 tablet; Refills: 0, pkl Product Selection Permitted Signatures: Dispatcher [employer] EDMS hSiv Reynoso MD MD pkl Bridgett Varma lc1 Néstor Lemon RN RN mr2 Corrections: (The following items were deleted from the chart) 04/30 19:58 19:57 Allergies: NKA; mr2 mr2 20:05 20:00 Lisinopril 10 mg PO once given. mr2 mr2 20:05 20:00 Metoprolol 25 mg PO once given. mr2 mr2 20:05 20:01 Furosemide 20 mg PO once given. mr2 mr2 20:05 20:05 Lisinopril 10 mg PO once ordered. mr2 mr2 20:05 20:05 Metoprolol 25 mg PO once ordered. mr2 mr2 20:05 20:05 Furosemide 20 mg PO once ordered. mr2 mr2
[2021-05-01 04:39] VITALS: TEMP 97.7
[2021-05-01 04:42] VITALS: BP 111/64; O2SAT 95
== END 2021-05-01 04:21 | disposition home or self-care (01) ==
LOC: ER 19:37
DX: K51.00 Ulcerative (chronic) pancolitis without complications (principal); E87.6 Hypokalemia; Z98.84 Bariatric surgery status; Z88.5 Allergy status to narcotic agent; Z20.822 Contact with and (suspected) exposure to COVID-19
CPT/HCPCS: 87040 ×2; 85025; 80048; 36415; 84132 ×2; 82565; 80076; 83605; 83690; 84145; 0240U; 71275; 74177; 99284; Q9967; J2550; J3480 ×2; J2175 ×3; J7030; J0744

== ENCOUNTER 2021-05-29 14:05 | Emergency (ER) | payer OTHER ==
[2021-05-29 15:58] LABS: Urine Blood 3+ (Negative); Urine Glucose Negative (Negative); Urine Protein Negative (Negative)
[2021-05-29] MEDS ORDERED: Ringers Lactate 1,000 ML IV ONE (16:08)
[2021-05-29 16:25] LABS: Absolute Lymphocytes (CBC) 2.4 K/uL (0.7-4.9); Basophils % 0.5 % (0-1.3); Hematocrit 44.2 % (39.6-49.0); Lymphocytes % 21.3 % (15.3-44.8); MPV 8.8 fL (7.6-11.3); RBC Red Blood Cell Count 4.71 M/uL (4.33-5.43)
[2021-05-29 16:39] LABS: BUN Blood Urea Nitrogen 8 mg/dL (7-18); Bicarbonate 24 mmol/L (21-32); Glucose Level 93 mg/dL (74-106); Potassium 3.1 mmol/L (3.5-5.1); Sodium Level 139 mmol/L (136-145)
[2021-05-29 16:40] LABS: Creatine Phosphokinase 99 U/L (39-308)
[2021-05-29] MEDS ORDERED: FOLIC ACID 1 MG, MULTIVITAMINS INJ 10 ML, THIAMINE HCL 100 MG in NA CHLORIDE 0.9% 1,000 ML IV ONE (17:00)
--- NOTE | 2021-05-29 18:26 | EDPHYS ---
Physician Documentation [facility] Name: Ari Ho Age: 35 yrs Sex: Male : 1985 Arrival Date: 05/29/2021 Time: 14:10 Bed Treatment Private MD: ED Physician Cy Gutierrez HPI: 05/29 17:16 This 35 yrs old Male presents to ER via Ambulatory with complaints of Urinary Problem, jr8 Flank Pain. 17:16 Is a 35-year-old male patient with a history of recent ISAURA-S gastric surgery for jr8 weight loss secondary to concerns for cardiac compromise. Patient stated that surgery went well and has been losing weight since the procedure. Recently had decreased urination and has felt dehydrated. Had talked to his primary care who referred him to the emergency room for hydration. Patient noted that he had some mild clotting in his urine as well and had recently started to have left flank pain denies fevers.. Historical: - Allergies: 15:35 Morphine; jl7 - Home Meds: 15:35 furosemide 20 mg Oral tab 1 tab once daily [Active]; jl7 - PMHx: 15:35 Hypertensive disorder; Congestive heart failure; jl7 - PSHx: 15:35 ISAURA-S; shoulder; jl7 - Immunization history:: Adult Immunizations not up to date, Client reports having NOT received the Covid vaccine. - Social history:: Smoking status: Patient reports the use of cigarette tobacco products, smokes one pack cigarettes per day. ROS: 17:16 Eyes: Negative for injury, pain, redness, and discharge, ENT: Negative for injury, jr8 pain, and discharge, Neck: Negative for injury, pain, and swelling, Cardiovascular: Negative for chest pain, palpitations, and edema, Respiratory: Negative for shortness of breath, cough, wheezing, and pleuritic chest pain, Abdomen/GI: Negative for abdominal pain, nausea, vomiting, diarrhea, and constipation, MS/Extremity: Negative for injury and deformity, Skin: Negative for injury, rash, and discoloration, Neuro: Negative for headache, weakness, numbness, tingling, and seizure. 17:16 Back: Positive for flank pain, on the left. 17:16 : Positive for Decreased urination. Exam: 17:16 Constitutional: This is a well developed, well nourished patient who is awake, alert, jr8 and in no acute distress. Cardiovascular: Regular rate and rhythm with a normal S1 and S2. No gallops, murmurs, or rubs. Normal PMI, no JVD. No pulse deficits. Respiratory: Lungs have equal breath sounds bilaterally, clear to auscultation and percussion. No rales, rhonchi or wheezes noted. No increased work of breathing, no retractions or nasal flaring. Abdomen/GI: Soft, non-tender, with normal bowel sounds. No distension or tympany. No guarding or rebound. No evidence of tenderness throughout. Back: No spinal tenderness. Mild left costovertebral tenderness noted. Full range of motion. Skin: Warm, dry with normal turgor. Normal color with no rashes, no lesions, and no evidence of cellulitis. MS/ Extremity: Pulses equal, no cyanosis. Neurovascular intact. Full, normal range of motion. Neuro: Awake and alert, GCS 15, oriented to person, place, time, and situation. Cranial nerves II-XII grossly intact. Motor strength 5/5 in all extremities. Sensory grossly intact. Cerebellar exam normal. Normal gait. Vital Signs: 15:32 BP 128 / 86; Pulse 75; Resp 17; Temp 97.2; Pulse Ox 98% ; Weight 206.38 kg; Height 6 jl7 ft. 9 in. (205.74 cm); Pain 9/10; 15:32 Body Mass Index 48.76 (206.38 kg, 205.74 cm) jl7 MDM: 15:57 Patient medically screened. jr8 17:16 ED course: Patient post fluids feels markedly better. Able to urinate fine and has no jr8 pain at this time. Discussed with patient that his blood work other than his potassium being slightly low was unremarkable. His urine did show 3+ blood which is concerning that in the context of having left flank pain that there may be a stone which patient has a history of. Patient stated that he feels so much better that he wants to wait before having to have a CT scan. Stated that if he were to worsen that he would come back and let us further evaluate this but for the time being feels well enough that he wants to just complete his fluids and go home at this time. Patient has remained hemodynamically stable and afebrile. Reexamination does not reveal any pain at this time. I feel like this is prudent enough at this time and that he is knowledgeable enough to come back for further evaluation if he were to worsen.. 18:25 Data reviewed: vital signs, nurses notes, and as a result, I will discharge patient. jr8 Data interpreted: Pulse oximetry: on room air is 98 %. Interpretation: normal. Counseling: I had a detailed discussion with the patient and/or guardian regarding: the historical points, exam findings, and any diagnostic results supporting the discharge/admit diagnosis, lab results, the need for outpatient follow up, a family practitioner, to return to the emergency department if symptoms worsen or persist or if there are any questions or concerns that arise at home. Response to treatment: the patient's symptoms have resolved after treatment. 05/29 15:57 Order name: Urine Dipstick-Ancillary; Complete Time: 16:04 EDMS 05/29 16:04 Order name: CBC with Diff; Complete Time: 17:09 jr8 05/29 16:04 Order name: Basic Metabolic Panel; Complete Time: 17:09 jr8 05/29 16:04 Order name: CK; Complete Time: 17:09 jr8 05/29 16:04 Order name: IV; Complete Time: 16:37 jr8 Administered Medications: 16:37 Drug: Ringers - Lactated Ringers Solution 1000 ml Route: IV; Rate: bolus; Site: left iw hand; 17:30 Follow up: IV Status: Completed infusion iw 16:37 Drug: Banana Bag - (NS 0.9% 1000 ml, foLIC Acid 1 mg, Thiamine 100 mg, Multivitamin 1 iw amp) Route: IV; Rate: 500 ml/hr; Site: left hand; 17:30 Follow up: IV Status: Completed infusion iw Disposition: 20:09 Co-signature as Attending Physician, Cy Gutierrez MD I agree with the assessment and kdr plan of care. Disposition Summary: 05/29/21 18:26 Discharge Ordered Location: Home jr8 Problem: new jr8 Symptoms: have improved jr8 Condition: Stable jr8 Diagnosis - Dehydration jr8 Followup: jr8 - With: Private Physician - When: 2 - 3 days - Reason: Recheck today's complaints, Continuance of care, Re-evaluation by your physician Discharge Instructions: - Discharge Summary Sheet jr8 - Dehydration, Adult jr8 Forms: - Medication Reconciliation Form jr8 - Thank You Letter jr8 - Antibiotic Education jr8 - Prescription Opioid Use jr8 Signatures: Dispatcher [employer] Cy Pizarro MD MD kdr Williams, Irene, RN RN iw Roszak, Josh, PA PA jr8 Viet Diez RN RN jl7 Corrections: (The following items were deleted from the chart) 15:37 15:35 PMHx: Chronic obstructive lung disease; catrachito jl7
--- NOTE | 2021-05-29 18:26 | ER ---
Nurse's Notes [facility] Name: Ari Ho Age: 35 yrs Sex: Male : 1985 Arrival Date: 05/29/2021 Time: 14:10 Bed Treatment Private MD: Diagnosis: Dehydration Presentation: 05/29 15:32 Chief complaint: Patient states: Had weight loss surgery April 01 in [place], unable jl7 to retain water, Left flank with blood in urine started last night, left CP with left fingers tingling started this morning. Coronavirus screen: At this time, the client does not indicate any symptoms associated with coronavirus-19. Ebola Screen: No symptoms or risks identified at this time. Initial Sepsis Screen: Does the patient meet any 2 criteria? No. Patient's initial sepsis screen is negative. Does the patient have a suspected source of infection? No. Patient's initial sepsis screen is negative. Risk Assessment: Do you want to hurt yourself or someone else? Patient reports no desire to harm self or others. Onset of symptoms was May 28, 2021. Care prior to arrival: None. 15:32 Method Of Arrival: Ambulatory [facility] 15:32 Acuity: RUFINA 2 jl7 Triage Assessment: 15:35 General: Appears in no apparent distress. uncomfortable, Behavior is calm, cooperative, jl7 appropriate for age. Pain: Complains of pain in left flank Pain currently is 9 out of 10 on a pain scale. Historical: - Allergies: 15:35 Morphine; jl7 - Home Meds: 15:35 furosemide 20 mg Oral tab 1 tab once daily [Active]; jl7 - PMHx: 15:35 Hypertensive disorder; Congestive heart failure; jl7 - PSHx: 15:35 ISAURA-S; shoulder; jl7 - Immunization history:: Adult Immunizations not up to date, Client reports having NOT received the Covid vaccine. - Social history:: Smoking status: Patient reports the use of cigarette tobacco products, smokes one pack cigarettes per day. Screenin:14 Abuse screen: Denies threats or abuse. Denies injuries from another. Nutritional iw screening: No deficits noted. Tuberculosis screening: No symptoms or risk factors identified. Fall Risk None identified. Assessment: 16:13 General: Appears in no apparent distress. Behavior is calm, cooperative. Pain: iw Complains of pain in back and left flank. Neuro: Level of Consciousness is awake, alert, obeys commands, Oriented to person, place, time, situation. Cardiovascular: Patient's skin is warm and dry. Respiratory: Respiratory effort is even, unlabored. GI: Abdomen is obese, Reports. Derm: Skin is intact, is healthy with good turgor. Musculoskeletal: Range of motion: intact in all extremities. 16:47 Reassessment: Patient appears in no apparent distress at this time. Patient and/or iw family updated on plan of care and expected duration. Pain level reassessed. Patient is alert, oriented x 3, equal unlabored respirations, skin warm/dry/pink. Vital Signs: 15:32 BP 128 / 86; Pulse 75; Resp 17; Temp 97.2; Pulse Ox 98% ; Weight 206.38 kg; Height 6 jl7 ft. 9 in. (205.74 cm); Pain 9/10; 15:32 Body Mass Index 48.76 (206.38 kg, 205.74 cm) jl7 ED Course: 14:10 Patient arrived in ED. as 15:35 Triage completed. jl7 15:35 Arm band placed on right wrist. Patient placed in waiting room, Patient notified of jl7 wait time. 15:45 Martita Ortega, SAMPSON is Primary Nurse. iw 15:57 Jese Mckoen PA is PHCP. jr8 15:57 Cy Gutierrez MD is Attending Physician. jr8 15:59 Urine collected: clean catch specimen, candelario colored, EKG done, reviewed by Jese Mckeon csKavin CALVILLO. 16:15 Patient has correct armband on for positive identification. iw 16:18 Inserted saline lock: 20 gauge in left hand, using aseptic technique. gd 18:39 No provider procedures requiring assistance completed. IV discontinued, intact, iw bleeding controlled, No redness/swelling at site. Pressure dressing applied. Administered Medications: 16:37 Drug: Ringers - Lactated Ringers Solution 1000 ml Route: IV; Rate: bolus; Site: left iw hand; 17:30 Follow up: IV Status: Completed infusion iw 16:37 Drug: Banana Bag - (NS 0.9% 1000 ml, foLIC Acid 1 mg, Thiamine 100 mg, Multivitamin 1 iw amp) Route: IV; Rate: 500 ml/hr; Site: left hand; 17:30 Follow up: IV Status: Completed infusion iw Outcome: 18:26 Discharge ordered by MD. burrell 18:39 Discharged to home ambulatory. iw 18:39 Condition: good 18:39 Discharge instructions given to patient, Instructed on discharge instructions, follow up and referral plans. Demonstrated understanding of instructions, follow-up care. 18:40 Patient left the ED. iw Signatures: Arleen Eckert Irene RN RN Jese Mckeon PA PA jr8 Leal, Jahala, RN RN david7 Apolonia iPllai Glynn gd Corrections: (The following items were deleted from the chart) 15:37 15:35 PMHx: Chronic obstructive lung disease; catrachito jl7 15:42 15:32 Acuity: RUFINA 3 david7 jl7
[2021-05-29 18:52] VITALS: BP 128/86; TEMP 97.2; O2SAT 98
--- NOTE | 2021-05-31 12:40 | EKG ---
Test Date: 2021-05-29 Test Time: 15:48:19 Assembler Convertible Top: RONDA MEASUREMENT RESULTS: Intervals: Rate: 71 AL: 184 QRSD: 114 QT: 410 QTc: 445 [place]: P: 38 AL: 184 QRS: -8 T: 66 INTERPRETIVE STATEMENTS: Normal sinus rhythm Normal ECG Compared to ECG 05/14/2020 14:27:17 No significant changes Electronically Signed On 05-31-21 12:35:55 MANAGER OF PATIENT by Js Man
== END 2021-05-29 18:40 | disposition home or self-care (01) ==
LOC: ER 14:05
DX: E86.0 Dehydration (principal); I10 Essential (primary) hypertension; I50.9 Heart failure, unspecified; F17.210 Nicotine dependence, cigarettes, uncomplicated; Z88.5 Allergy status to narcotic agent
CPT/HCPCS: 96365; 96368; 93005; 85025; 80048; 36415; 82550; 81003; 99284; J3411; J7120; J7030

== ENCOUNTER 2022-05-05 17:44 | Emergency (ER) | payer BC, OTHER ==
--- NOTE | 2022-05-05 18:26 | RAD REPORT ---
EXAM DESCRIPTION: CT - CTHCSPWOC - 05/05/2022 6:16 pm CLINICAL HISTORY: Trauma, head and neck injury. syncope COMPARISON: No comparisons TECHNIQUE: Axial 5 mm thick images of the head were obtained. Axial 2 mm thick images of the cervical spine were obtained with sagittal and coronal reconstruction images generated and reviewed. All CT scans are performed using dose optimization technique as appropriate and may include automated exposure control or mA/KV adjustment according to patient size. FINDINGS: CT HEAD WITHOUT CONTRAST: No acute hemorrhage, hydrocephalus or extra-axial collection is identified.No areas of brain edema or midline shift. The paranasal sinuses and mastoids are clear.The calvarium is intact. CT CERVICAL SPINE WITHOUT CONTRAST: No fracture or subluxation.No prevertebral soft tissues swelling is identified. IMPRESSION: No acute intracranial or cervical spine findings.
[2022-05-05] MEDS ORDERED: FENTANYL CITR 100 MCG/2 ML ONE (18:34)
[2022-05-05] MEDS ORDERED: TENECTEPLASE 50 MG/10 ML VIAL IV ONE (18:34)
--- NOTE | 2022-05-05 18:34 | RAD REPORT ---
EXAM DESCRIPTION: CT - Angio Aorta For Dissection - 05/05/2022 6:19 pm CLINICAL HISTORY: Chest pain radiating to the back. syncope COMPARISON: Head C Spine Mpr Wo Con dated 05/05/2022 TECHNIQUE: CT angiography of the aorta was performed with MIPs. All CT scans are performed using dose optimization technique as appropriate and may include automated exposure control or mA/KV adjustment according to patient size. FINDINGS: A left aortic arch is present with normal branching pattern of the great vessels.No acute aortic finding is seen such as aneurysm, penetrating ulcer or dissection. The celiac axis, SMA, MINA and renal arteries are patent. Pulmonary embolism assessment is limited by bolus timing. No large proximal pulmonary embolism seen. The lungs are clear. Postsurgical changes about the stomach. The liver demonstrates no focal mass or biliary dilatation.The spleen, pancreas, adrenal glands and k idneys are within normal limits for arterial phase imaging. No bowel obstruction, free fluid or abscess.No pathologic enlarged lymphadenopathy identified. No fracture or worrisome bone lesion seen. IMPRESSION: No acute aortic finding is demonstrated.
[2022-05-05 18:43] LABS: Absolute Lymphocytes (CBC) 2.6 K/uL (0.7-4.9); Hematocrit 50.1 % (39.6-49.0); Lymphocytes % 26.8 % (15.3-44.8); MCV 97.8 fL (80-100); MPV 9.1 fL (7.6-11.3); RBC Red Blood Cell Count 5.13 M/uL (4.33-5.43)
[2022-05-05 18:45] LABS: Blood Morphology Comment NOT SEEN (NOT SEEN); Platelet Estimate ADEQ; White Blood Cell Scan OK (OK)
[2022-05-05 18:46] LABS: Protime INR 1.15
[2022-05-05 19:04] LABS: Albumin 3.5 g/dL (3.4-5.0); Bilirubin Direct 0.2 mg/dL (0-0.2); Bilirubin Total 0.6 mg/dL (0.2-1.0); Magnesium 2.7 mg/dL (1.8-2.4); Potassium 3.6 mmol/L (3.5-5.1); Protein, Total 7.3 g/dL (6.4-8.2); Troponin High Sensitivity 6.2 pg/mL (<58.9)
--- NOTE | 2022-05-05 19:12 | RAD REPORT ---
EXAM DESCRIPTION: RAD - Chest Single View - 05/05/2022 7:00 pm CLINICAL HISTORY: syncope Chest pain. COMPARISON: Chest Single View dated 05/13/2020; CHEST PA AND LAT 2 VIEW dated 10/28/2011; CHEST PA AND LAT 2 VIEW dated 07/26/2008; Angio Aorta For Dissection dated 05/05/2022 FINDINGS: Portable technique limits examination quality. The lungs are grossly clear. The heart is normal in size. Mild tortuosity of the thoracic aorta.
[2022-05-05] MEDS ORDERED: HYDROMORPHONE HCL 1 MG/ML INJ ONE ×2 (19:18→20:44)
--- NOTE | 2022-05-05 19:21 | EDPHYS ---
Physician Documentation [facility] Name: Ari Ho Age: 36 yrs Sex: Male : 1985 Arrival Date: 05/05/2022 Time: 17:46 Bed 2 Private MD: ED Physician Johnny Arreola HPI: 05/05 18:10 This 36 yrs old Male presents to ER via Unassigned with complaints of Passed Out Prior cp To Arrival, Chest Pain. 18:10 The patient has experienced syncope, collapsed, lost consciousness. Onset: The cp symptoms/episode began/occurred about 1630. Context: the episode(s) was witnessed, by no one, the downtime is unknown, occurred outdoors, occurred while the patient was walking, talking to on phone. Just prior to the episode the patient experienced chest pain. Associated injury: Neck: pain, Back: pain. Associated signs and symptoms: Pertinent positives: chest pain, confusion. Current symptoms: confusion, neck pain, back pain. Historical: - Allergies: 18:04 Morphine; aa5 - PMHx: 18:04 Congestive heart failure; Hypertensive disorder; aa5 - PSHx: 18:04 ISAURA-S; Shoulder; Sleeve gastrectomy; aa5 - Immunization history:: Adult Immunizations unknown. - Social history:: Smoking status: Patient reports the use of cigarette tobacco products. ROS: 18:15 Constitutional: Negative for fever. cp 18:15 Neck: Positive for pain with movement, pain at rest. 18:15 Cardiovascular: Positive for chest pain. 18:15 Respiratory: Negative for cough, shortness of breath, wheezing. 18:15 Abdomen/GI: Negative for abdominal pain. 18:15 Back: Positive for pain at rest, pain with movement. 18:15 Neuro: Positive for altered mental status, syncope, weakness. Exam: 18:51 Constitutional: This is a well developed, well nourished patient who is awake, alert, rn tearful Head/Face: Normocephalic, atraumatic. Eyes: Periorbital areas with no swelling, redness, or edema. Cardiovascular: Regular rate and rhythm. No pulse deficits. Respiratory: No increased work of breathing, no retractions or nasal flaring. Abdomen/GI: Soft, non-tender Skin: Warm, dry MS/ Extremity: Pulses equal, no cyanosis. Neuro: Awake and alert, GCS 15, oriented to person, place, time, and situation. + left sided weakness and numbness, + right facial numbness. Vital Signs: 18:22 BP 168 / 96; Pulse 81; Resp 14; Temp 99.7(TE); Pulse Ox 97% on R/A; Weight 139.25 kg aa5 (M); Height 6 ft. 9 in. (205.74 cm); 18:37 BP 147 / 103; Pulse 76; Resp 20 S; Pulse Ox 97% on R/A; aa5 18:50 BP 134 / 99; Pulse 68; Resp 18 S; Pulse Ox 96% on R/A; aa5 19:00 vc1 18:22 Body Mass Index 32.90 (139.25 kg, 205.74 cm) aa5 19:00 See NIHSS sheet for Vitals vc1 NIH Stroke Scale Scores: 18:22 NIHSS Score: 4 aa5 18:31 NIHSS Score: 4 rn 18:50 NIHSS Score: 4 aa5 MDM: 17:58 Patient medically screened. rn 18:30 ED course: Spoke with Dr. Summers, no acute findings in CT head/cspine, no acute findings rn of aorta on aorta scan. Patient with right facial numbness, left sided weakness and numbness, will TNK. . 18:50 ED course: Pt and consented for TNKase, last known normal 1630 when spoke rn with him. . 19:42 Data reviewed: vital signs, nurses notes, lab test result(s), EKG, radiologic studies. Physician consultation: was contacted at 19:35, regarding regarding transfer, to [facility]. patient's condition, accepting physician will be DR Paz. 05/05 18:06 Order name: Basic Metabolic Panel; Complete Time: 19:08 05/05 19:10 Interpretation: Normal except: CL 110. 05/05 18:06 Order name: CBC with Diff; Complete Time: 19: 05/05 19:30 Interpretation: Normal except: HCT 50.1. 05/05 18:06 Order name: LFT's; Complete Time: 19:08 05/05 19:10 Interpretation: Normal except: AST 64; ALT 130; ALK 118; GLOB 3.8; A/G 0.9. 05/05 18:06 Order name: Magnesium; Complete Time: 19:08 05/05 19:10 Interpretation: Abnormal: MG 2.7. 05/05 18:06 Order name: NT PRO-BNP; Complete Time: 19:08 cp 05/05 20:58 Interpretation: Reviewed. 05/05 18:06 Order name: PT-INR; Complete Time: 19:01 cp 05/05 20:58 Interpretation: Reviewed. 05/05 18:06 Order name: CT Aorta for Dissection; Complete Time: 19:01 cp 05/05 20:58 Interpretation: Report reviewed. 05/05 18:06 Order name: Troponin HS; Complete Time: 19:08 05/05 18:06 Order name: XRAY Chest (1 view); Complete Time: 19:30 cp 05/05 19:38 Interpretation: Report review. 05/05 18:06 Order name: CT Head C Spine; Complete Time: 18:30 cp 05/05 18:38 Order name: Glucose, Ancillary Testing; Complete Time: 19:01 EDMS 05/05 18:45 Order name: CBC Smear Scan; Complete Time: 19:01 EDMS 05/05 19:40 Order name: SARS-COV-2 Antigen Rapid; Complete Time: 20:57 wm 05/05 20:57 Interpretation: Reviewed. 05/05 20:26 Order name: CREATININE WHOLE BLOOD; Complete Time: 20:57 EDMS 05/05 20:57 Interpretation: Within normal limits. 05/05 18:06 Order name: EKG; Complete Time: 18:07 05/05 18:06 Order name: Cardiac monitoring; Complete Time: 18:27 05/05 18:06 Order name: EKG - Nurse/Tech; Complete Time: 18:27 cp 05/05 18:06 Order name: IV Saline Lock; Complete Time: 18:27 05/05 18:06 Order name: Labs collected and sent; Complete Time: 19:15 05/05 18:06 Order name: O2 Per Protocol; Complete Time: 18:10 05/05 18:06 Order name: O2 Sat Monitoring; Complete Time: 18:27 cp Administered Medications: 18:33 Drug: fentaNYL (PF) 50 mcg Route: IVP; Site: left antecubital; aa5 18:37 Follow up: Response: No adverse reaction aa5 18:37 Drug: TNK FOR STROKE - Tenecteplase 0.25 mg/kg {Co-Signature: tw2 (Adamaris Mak aa5 RN).} {Note: administered 25mg .} Route: IV; Rate: per protocol; Site: left antecubital; 19:24 Drug: Dilaudid (HYDROmorphone) 1 mg Route: IVP; Site: left antecubital; vc1 20:16 Drug: Diazepam 2 mg Route: IVP; Site: left antecubital; vc1 20:16 Drug: foLIC Acid 1 mg Route: IVPB; Site: left antecubital; vc1 20:49 Drug: Dilaudid (HYDROmorphone) 1 mg Route: IVP; Site: left antecubital; vc1 21:14 Drug: Valium (diazepam) 2 mg Route: IVP; Site: left antecubital; vc1 Disposition Summary: 05/05/22 19:21 Transfer Ordered Transfer Location: [facility] cp Reason: Higher level of care cp Condition: Stable cp Problem: new cp Symptoms: have improved cp Accepting Physician: Doctor(05/05/22 21:19) vc1 Diagnosis - Syncope cp - Chest pain, unspecified cp - Weakness cp - Paresthesia of skin cp Forms: - Medication Reconciliation Form cp - SBAR form cp NIH Stroke Scale - NIH Stroke Score Date: 05/05/2022 Time: Total Score = 4 1a. Level of Consciousness (LOC) - 0(Alert) 1b. Level of Consciousness (LOC) (Month \T\ Age) - 0(Both) 1c. LOC Commands (Open \T\ Closes Eyes/Sales Mgr) - 0(Both) 2. Best Gaze (Lateral Gaze Paresis) - 0(Normal) 3. Visual Field Loss - 0(No visual loss) 4. Facial Palsy - 0(Normal) 5a. Left Arm: Motor (10-second hold) - 1(Drift) 5b. Right Arm: Motor (10-second hold) - 0(No drift) 6a. Left Leg: Motor (5-second hold - always test supine) - 2(Drift, some effort against gravity) 6b. Right Leg: Motor (5-second hold - always test supine) - 0(No drift) 7. Limb Ataxia (finger/nose \T\ heel/ac - test with eyes open) - 0(Absent) 8. Sensory Loss (pinprick arms/legs/face) - 1(Mild to moderate loss) 9. Best Language: Aphasia (description/naming/reading) - 0(No aphasia) 10. Dysarthria (speech clarity - read or repeat words) - 0(Normal) 11. Extinction and Inattention (visual/tactile/auditory/spatial/personal) - 0(No abnormality) Initials: aa5 NIH Stroke Scale - NIH Stroke Score Date: 05/05/2022 Time: 18:31 Total Score = 4 1a. Level of Consciousness (LOC) - 0(Alert) 1b. Level of Consciousness (LOC) (Month \T\ Age) - 0(Both) 1c. LOC Commands (Open \T\ Closes Eyes/Sales Mgr) - 0(Both) 2. Best Gaze (Lateral Gaze Paresis) - 0(Normal) 3. Visual Field Loss - 0(No visual loss) 4. Facial Palsy - 0(Normal) 5a. Left Arm: Motor (10-second hold) - 1(Drift) 5b. Right Arm: Motor (10-second hold) - 0(No drift) 6a. Left Leg: Motor (5-second hold - always test supine) - 2(Drift, some effort against gravity) 6b. Right Leg: Motor (5-second hold - always test supine) - 0(No drift) 7. Limb Ataxia (finger/nose \T\ heel/ac - test with eyes open) - 0(Absent) 8. Sensory Loss (pinprick arms/legs/face) - 1(Mild to moderate loss) 9. Best Language: Aphasia (description/naming/reading) - 0(No aphasia) 10. Dysarthria (speech clarity - read or repeat words) - 0(Normal) 11. Extinction and Inattention (visual/tactile/auditory/spatial/personal) - 0(No abnormality) Initials: rn NIH Stroke Scale - NIH Stroke Score Date: 05/05/2022 Time: 18:50 Total Score = 4 1a. Level of Consciousness (LOC) - 0(Alert) 1b. Level of Consciousness (LOC) (Month \T\ Age) - 0(Both) 1c. LOC Commands (Open \T\ Closes Eyes/Sales Mgr) - 0(Both) 2. Best Gaze (Lateral Gaze Paresis) - 0(Normal) 3. Visual Field Loss - 0(No visual loss) 4. Facial Palsy - 0(Normal) 5a. Left Arm: Motor (10-second hold) - 1(Drift) 5b. Right Arm: Motor (10-second hold) - 0(No drift) 6a. Left Leg: Motor (5-second hold - always test supine) - 2(Drift, some effort against gravity) 6b. Right Leg: Motor (5-second hold - always test supine) - 0(No drift) 7. Limb Ataxia (finger/nose \T\ heel/ac - test with eyes open) - 0(Absent) 8. Sensory Loss (pinprick arms/legs/face) - 1(Mild to moderate loss) 9. Best Language: Aphasia (description/naming/reading) - 0(No aphasia) 10. Dysarthria (speech clarity - read or repeat words) - 0(Normal) 11. Extinction and Inattention (visual/tactile/auditory/spatial/personal) - 0(No abnormality) Initials: aa5 Addendum: 05/07/2022 07:37 Co-signature as Attending Physician, Johnny Arreola MD. rn Signatures: Dispatcher [employer] EDJohnny Shea MD MD rn Calderon, Audri, RN RN aa5 Logan Forbes PA PA cp Calcote, Vanessa, RN RN vc1 Adamaris Mak RN tw2 Corrections: (The following items were deleted from the chart) 05/05 21:19 19:21 Doctor alek vc1
--- NOTE | 2022-05-05 19:21 | ER ---
Nurse's Notes [facility] Name: Ari Ho Age: 36 yrs Sex: Male : 1985 Arrival Date: 05/05/2022 Time: 17:46 Bed 2 Private MD: Diagnosis: Syncope;Chest pain, unspecified;Weakness;Paresthesia of skin Presentation: 05/05 17:[address] via stretcher. aa5 17:53 Chief complaint: Pt's states "I was at work and we were speaking [id number] 4:15pm and he was complaining of chest pain when all of a sudden he was no longer responding to me and I said his name for approximately 3 to 4 minutes without him answering before hanging up; called him back and did not answer so I sent my cousin to check on him and my cousin found him unconscious. When I got to him I found him shaking all over and I was able to wake him up but he was very confused and just asking the same questions all over and over; he was also complaining of neck pain, headache, and back pain". C-collar was applied by RAJINDER Lockwood prior to pt being transported to CT. 17:53 Coronavirus screen: At this time, the client does not indicate any symptoms associated aa5 with coronavirus-19. Ebola Screen: Patient denies travel to an Ebola-affected area in the 21 days before illness onset. Onset of symptoms was May 05, 2022. 17:53 Acuity: RUFINA 2 aa5 17:53 Method Of Arrival: Wheelchair aa 17:53 An acute neurological deficit is present. The charge nurse has been notified. aa5 Pre-hospital glucose is not applicable to this patient. 18:22 Initial Sepsis Screen: Does the patient meet any 2 criteria? No. Patient's initial aa5 sepsis screen is negative. Does the patient have a suspected source of infection? No. Patient's initial sepsis screen is negative. Risk Assessment: Do you want to hurt yourself or someone else? Unable to obtain. Stroke Activation: Symptom onset < 3 hours Physician: Stroke Attending; Name: ; Notified At: ; Arrived At: Physician: Chief Stroke Resident; Name: ; Notified At: ; Arrived At: Physician: Stroke Resident; Name: ; Notified At: ; Arrived At: Physician: ED Attending; Name: ; Notified At: ; Arrived At: Physician: ED Resident; Name: ; Notified At: ; Arrived At: Historical: - Allergies: 18:04 Morphine; aa5 - PMHx: 18:04 Congestive heart failure; Hypertensive disorder; aa5 - PSHx: 18:04 ISAURA-S; Shoulder; Sleeve gastrectomy; aa5 - Immunization history:: Adult Immunizations unknown. - Social history:: Smoking status: Patient reports the use of cigarette tobacco products. Screenin:05 Abuse screen: Denies threats or abuse. Nutritional screening: No deficits noted. tw2 Tuberculosis screening: No symptoms or risk factors identified. Fall Risk None identified. Assessment: 18:22 Reassessment: Pt back from CT scan. aa5 18:22 VAN Scoring: Arm Drift: Severe drift Visual Disturbance: No visual disturbance noted. aa5 Aphasia: No aphasia noted. Neglect: No neglect noted. 18:22 General: Appears uncomfortable, Behavior is cooperative, anxious. Pain: Complains of aa5 pain in head and neck Pain does not radiate. Pain currently is 10 out of 10 on a pain scale. Quality of pain is described as sharp, Pain began today Is continuous. Neuro: Level of Consciousness is awake, obeys commands, confused, Oriented to person, place, time, Optimization Specialist are weak on left Weakness in left arm(s) leg(s) Speech is normal, Facial symmetry appears normal, Pupils are PERRLA, Reports numbness in left arm and left leg weakness in left arm and left leg. Cardiovascular: Heart tones S1 S2 present Rhythm is regular. Respiratory: Airway is patent Respiratory effort is even, unlabored, Respiratory pattern is regular, symmetrical, Breath sounds are clear bilaterally. GI: Abdomen is round Bowel sounds present X 4 quads. Abd is soft and non tender X 4 quads. : No signs and/or symptoms were reported regarding the genitourinary system. EENT: No signs and/or symptoms were reported regarding the EENT system. Derm: Skin is pink, warm \\T\\ dry. Musculoskeletal: Reports pain in left arm and left leg, head and neck. 18:35 TNKase (Tenecteplase) Screening: Indications: Treatment will start within 4.5 hours aa5 onset of symptoms: Yes. No evidence of intracranial hemorrhage or CT of head and no evidence of peripheral hemorrhage or recent CVA: Yes. 18:35 Reassessment: Consent for TNK administration obtained and signed by pt's . aa5 18:50 Reassessment: Pt c/o headache and neck pain, requesting pain medication, MD was aa5 notified. . General: Appears uncomfortable, Behavior is anxious. Neuro: Level of Consciousness is awake, obeys commands, confused, Oriented to person, place, time. Respiratory: Airway is patent Respiratory effort is even, unlabored, Respiratory pattern is regular, symmetrical. Derm: Skin is pink, warm \\T\\ dry. 20:55 Patient has been NPO before screening. The patient is alert, and able to follow vc1 commands. The patient does not exhibit slurred or garbled speech. The patient is not exhibiting difficulty speaking. The patient does not exhibit difficulty understanding words. The patient is able to swallow own secretions with no drooling or need for suction. Patient tolerated one teaspoon of water. No drooling, immediate coughing, gurgling, or clearing of the throat was noted. The patient tolerated 90mL of water. No drooling, immediate coughing, gurgling, or clearing of the throat was noted. The patient passed the bedside swallow screening. Oral medications may be given as ordered. Contact Physician for further diet orders. Provider notified of bedside swallow screening results: Logan CALVILLO. 21:01 Reassessment: No changes from previously documented assessment. Patient and/or family vc1 updated on plan of care and expected duration. Pain level reassessed. Patient states symptoms have improved. Vital Signs: 18:22 BP 168 / 96; Pulse 81; Resp 14; Temp 99.7(TE); Pulse Ox 97% on R/A; Weight 139.25 kg aa5 (M); Height 6 ft. 9 in. (205.74 cm); 18:37 BP 147 / 103; Pulse 76; Resp 20 S; Pulse Ox 97% on R/A; aa5 18:50 BP 134 / 99; Pulse 68; Resp 18 S; Pulse Ox 96% on R/A; aa5 19:00 vc1 18:22 Body Mass Index 32.90 (139.25 kg, 205.74 cm) aa5 19:00 See NIHSS sheet for Vitals vc1 NIH Stroke Scale Scores: 18:22 NIHSS Score: 4 aa5 18:31 NIHSS Score: 4 rn 18:50 NIHSS Score: 4 aa5 ED Course: 17:46 Patient arrived in ED. rg4 17:53 Inserted saline lock: 20 gauge in left antecubital area, using aseptic technique. IV aa5 inserted by MARY Henry. 17:58 Johnny Arreola MD is Attending Physician. rn 18:05 Arm band placed on. tw2 18:09 Adamaris Mak, ALEXX is Primary Nurse. tw2 18:18 CT Head C Spine In Process Unspecified. EDMS 18:19 Triage completed. aa5 18:20 CT Aorta for Dissection In Process Unspecified. EDMS 18:22 Patient has correct armband on for positive identification. Bed in low position. Call aa5 light in reach. Side rails up X2. Client placed on continuous cardiac and pulse oximetry monitoring. NIBP monitoring applied. 19:00 Report given to ALEXX Marshall and ALEXX Handley. aa5 19:01 XRAY Chest (1 view) In Process Unspecified. EDMS 19:11 No provider procedures requiring assistance completed. Patient maintains SpO2 aa5 saturation greater than 95% on room air. 19:17 Logan Forbes PA is PHCP. cp 19:20 Ange initiated transfer to [facility]. wm 19:31 Pt accepted for transfer by Dr. Shelia Paz per Jesus Alberto Jj. wm 20:00 SARS-COV-2 Antigen Rapid Sent. wm 21:04 Patient transferred, IV remains in place. vc1 Administered Medications: 18:33 Drug: fentaNYL (PF) 50 mcg Route: IVP; Site: left antecubital; aa5 18:37 Follow up: Response: No adverse reaction aa5 18:37 Drug: TNK FOR STROKE - Tenecteplase 0.25 mg/kg {Co-Signature: tw2 (Adamaris Mak aa5 RN).} {Note: administered 25mg .} Route: IV; Rate: per protocol; Site: left antecubital; 19:24 Drug: Dilaudid (HYDROmorphone) 1 mg Route: IVP; Site: left antecubital; vc1 20:16 Drug: Diazepam 2 mg Route: IVP; Site: left antecubital; vc1 20:16 Drug: foLIC Acid 1 mg Route: IVPB; Site: left antecubital; vc1 20:49 Drug: Dilaudid (HYDROmorphone) 1 mg Route: IVP; Site: left antecubital; vc1 21:14 Drug: Valium (diazepam) 2 mg Route: IVP; Site: left antecubital; vc1 Medication: 21:03 VIS not applicable for this client. vc1 Outcome: 19:21 ER care complete, transfer ordered by MD. gaston 21:01 Transferred by ground EMS to [facility], Transfer form completed. vc1 21:01 Condition: stable 21:01 Instructed on the need for transfer. 21:19 Patient left the ED. vc1 NIH Stroke Scale - NIH Stroke Score Date: 05/05/2022 Time: 18:22 Total Score = 4 1a. Level of Consciousness (LOC) - 0(Alert) 1b. Level of Consciousness (LOC) (Month \\T\\ Age) - 0(Both) 1c. LOC Commands (Open \\T\\ Closes Eyes/Relations Liaison) - 0(Both) 2. Best Gaze (Lateral Gaze Paresis) - 0(Normal) 3. Visual Field Loss - 0(No visual loss) 4. Facial Palsy - 0(Normal) 5a. Left Arm: Motor (10-second hold) - 1(Drift) 5b. Right Arm: Motor (10-second hold) - 0(No drift) 6a. Left Leg: Motor (5-second hold - always test supine) - 2(Drift, some effort against gravity) 6b. Right Leg: Motor (5-second hold - always test supine) - 0(No drift) 7. Limb Ataxia (finger/nose \\T\\ heel/ac - test with eyes open) - 0(Absent) 8. Sensory Loss (pinprick arms/legs/face) - 1(Mild to moderate loss) 9. Best Language: Aphasia (description/naming/reading) - 0(No aphasia) 10. Dysarthria (speech clarity - read or repeat words) - 0(Normal) 11. Extinction and Inattention (visual/tactile/auditory/spatial/personal) - 0(No abnormality) Initials: aa5 NIH Stroke Scale - NIH Stroke Score Date: 05/05/2022 Time: 18:31 Total Score = 4 1a. Level of Consciousness (LOC) - 0(Alert) 1b. Level of Consciousness (LOC) (Month \\T\\ Age) - 0(Both) 1c. LOC Commands (Open \\T\\ Closes Eyes/Relations Liaison) - 0(Both) 2. Best Gaze (Lateral Gaze Paresis) - 0(Normal) 3. Visual Field Loss - 0(No visual loss) 4. Facial Palsy - 0(Normal) 5a. Left Arm: Motor (10-second hold) - 1(Drift) 5b. Right Arm: Motor (10-second hold) - 0(No drift) 6a. Left Leg: Motor (5-second hold - always test supine) - 2(Drift, some effort against gravity) 6b. Right Leg: Motor (5-second hold - always test supine) - 0(No drift) 7. Limb Ataxia (finger/nose \\T\\ heel/ac - test with eyes open) - 0(Absent) 8. Sensory Loss (pinprick arms/legs/face) - 1(Mild to moderate loss) 9. Best Language: Aphasia (description/naming/reading) - 0(No aphasia) 10. Dysarthria (speech clarity - read or repeat words) - 0(Normal) 11. Extinction and Inattention (visual/tactile/auditory/spatial/personal) - 0(No abnormality) Initials: alexx NIH Stroke Scale - NIH Stroke Score Date: 05/05/2022 Time: 18:50 Total Score = 4 1a. Level of Consciousness (LOC) - 0(Alert) 1b. Level of Consciousness (LOC) (Month \\T\\ Age) - 0(Both) 1c. LOC Commands (Open \\T\\ Closes Eyes/Relations Liaison) - 0(Both) 2. Best Gaze (Lateral Gaze Paresis) - 0(Normal) 3. Visual Field Loss - 0(No visual loss) 4. Facial Palsy - 0(Normal) 5a. Left Arm: Motor (10-second hold) - 1(Drift) 5b. Right Arm: Motor (10-second hold) - 0(No drift) 6a. Left Leg: Motor (5-second hold - always test supine) - 2(Drift, some effort against gravity) 6b. Right Leg: Motor (5-second hold - always test supine) - 0(No drift) 7. Limb Ataxia (finger/nose \\T\\ heel/ac - test with eyes open) - 0(Absent) 8. Sensory Loss (pinprick arms/legs/face) - 1(Mild to moderate loss) 9. Best Language: Aphasia (description/naming/reading) - 0(No aphasia) 10. Dysarthria (speech clarity - read or repeat words) - 0(Normal) 11. Extinction and Inattention (visual/tactile/auditory/spatial/personal) - 0(No abnormality) Initials: aa5 Signatures: Dispatcher [employer] EDJohnny Shea MD MD rn Calderon, Audri RN RN aa5 Logan Forbes PA PA cp Wise, Tara, RN RN tw2 Luna Allen 4 Urvashi Roche Vanessa, RN RN vc1 Adamaris Mak RN tw2 Corrections: (The following items were deleted from the chart) 18:58 18:27 BP 168 / 96; Pulse 81bpm; Resp 14bpm; Pulse Ox 97% RA; Temp 99.7F aa5 Temporal; 145.15 kg Reported; Height 6 ft. 9 in.; BMI: 34.2; tw2
[2022-05-05] MEDS ORDERED: DIAZEPAM 10 MG/2 ML INJ SYRINGE ONE (20:04)
[2022-05-05] MEDS ORDERED: NA CHLORIDE 0.9% 50 ML IV ONE (20:04)
[2022-05-05] MEDS ORDERED: FOLIC ACID 5 MG/ML VIAL ONE (20:06)
[2022-05-05 20:16] LABS: SARS-CoV-2 Antigen Rapid Res Negative (Negative)
[2022-05-05 21:23] VITALS: TEMP 99.7
[2022-05-05 21:26] VITALS: BP 134/99; O2SAT 96
--- NOTE | 2022-05-07 06:33 | EKG ---
Test Date: 2022-05-05 Test Time: 18:24:24 [employer]vac Journeyman: JULIUS MEASUREMENT RESULTS: Intervals: Rate: 90 NH: 180 QRSD: 104 QT: 368 QTc: 450 [place]: P: 54 NH: 180 QRS: 33 T: 72 INTERPRETIVE STATEMENTS: Normal sinus rhythm Normal ECG Compared to ECG 05/29/2021 15:48:19 No significant changes Electronically Signed On 05-07-22 06:30:39 FOIL CUTTER by Js Man
== END 2022-05-05 21:19 | disposition short-term general hospital (02) ==
LOC: ER 17:44
DX: R07.9 Chest pain, unspecified (principal); R55 Syncope and collapse; R53.1 Weakness; R20.2 Paresthesia of skin; I50.9 Heart failure, unspecified; I10 Essential (primary) hypertension; R29.704 NIHSS score 4; F17.210 Nicotine dependence, cigarettes, uncomplicated; Z20.822 Contact with and (suspected) exposure to COVID-19; Z88.5 Allergy status to narcotic agent
CPT/HCPCS: 92977; 93005; 85025; 80048; 36415; 83735; 85610; 82565; 82947; 80076; 84484; 83880; 70450; 72125; 71275; 74175; 71045; 96375; 96374; 99291; 87811; Q9967; J3101; J3360; J3010; J1170 ×2